=== PATIENT | male | born 1955 | race Caucasian/White ===

== ENCOUNTER 2016-10-06 07:59 | Emergency (ER) | payer OTHER ==
[~2016-10-06 07:59] MED LIST: ASPI325T4 PO; ATV/2 PO; BSP/10 PO; CARB200T PO; ESCI10TA17 PO; FLM4 PO; HMLI SC; INSU1INJ7 SC; MULT-506 PO; NRN600 PO; SIMV40TA2 PO; TEST1INJ2 IM; ZNTT/150 PO
[2016-10-06 08:02] VITALS: TEMP 37; Ht 185.4 cm
[2016-10-06] MEDS ORDERED: SODIUM CHLORIDE 0.9% 1000ML 1,000 ML IV STA (08:14)
[2016-10-06] MEDS ORDERED: ACETAMINOPHEN 500 MG TAB PO STA (08:14)
[2016-10-06] MEDS ORDERED: SUCRALFATE 1 GM TAB PO STA (08:16)
[2016-10-06] MEDS ORDERED: GI COCKTAIL PO STA (08:16)
[2016-10-06] MEDS ORDERED: FAMOTIDINE 20 MG TAB PO STA (08:16)
--- NOTE | 2016-10-06 08:16 | EMERGENCY ROOM VISIT NOTE ---
History Report prepared by Dorita: Yohana Layton Under the Supervision of: Dr. Hari De Anda M.D. First contact with patient: 08:05 Chief Complaint: CHEST PAIN Stated Complaint: CHEST PAIN, SOB, DIZZY History of Present Illness The patient is a 60 year old male who presents to the Emergency Room with complaints of persistent nausea each morning for the last several months. The patient states that each morning when he wakes he has woken up with nausea. The patient states that he develops pain in his upper shoulders. He states that he has had difficulty ambulating. The patient states that he has developed a headache today on top of his head. The patient's notes that the patient has complained of chest pain and dizziness recently. The patient states that his chest pain comes with exertion. He denies taking anything for his discomfort or recent changes in his medications. Source of History: patient Onset: last several months Position: other (global) Quality: other (nausea) Timing: other (persistent, each morning) Associated Symptoms: + chest pain, + headache Note: Associated Symptoms: difficulty ambulating, pain in shoulders, dizziness Review of Systems See HPI for pertinent positives & negatives. A total of 10 systems reviewed and were otherwise negative. Past Medical & Surgical Medical Problems: (1) Anxiety (2) Chest pain (3) Diabetes mellitus (4) Infected sebaceous cyst (5) Laser prostate surgery (6) Nasal surgery (7) Pneumonia (8) TIA (transient ischemic attack) (9) Tonsillectomy Family History FH: migraines Social History Smoking Status: Never Smoker Alcohol Use: none Drug Use: none Marital Status: Housing Status: lives with family Occupation Status: disabled Current/Historical Medications Scheduled Aspirin (Aspirin), 0.5 TAB PO QPM Buspirone HCl (Buspirone HCl), 20 MG PO BID Carbamazepine (Tegretol), 200 MG PO BID Escitalopram (Lexapro), 30 MG PO QPM Gabapentin (Gabapentin), 600 MG PO BID Insulin Glargine (Lantus Solostar), 50 SC BID Insulin Lispro (Human) (Humalog Kwikpen), 24 UNITS SC TIDM Ranitidine (Zantac), 150 MG PO BID Simvastatin (Zocor), 40 MG PO QPM Tamsulosin HCl (Tamsulosin HCl), 0.4 MG PO QPM Testosterone Cypionate (Testosterone Cypionate), 0.75 ML IM EVERY WEDNESDAY Scheduled PRN Lidocaine Hcl (Mouth-Throat) (Lidocaine Hcl), Unknown Dose PO DAILY PRN for Pain Lorazepam (Ativan), 2 MG PO DAILY PRN for Anxiety Allergies Coded Allergies: Metformin (Unverified Allergy, Intermediate, ., 10/06/16) Morphine (Verified Allergy, Intermediate, SHAKES, 10/06/16) Propoxyphene (Verified Adverse Reaction, Intermediate, SHAKES (DARVOCET), 10/06/16) Physical Exam Vital Signs Date Time Temp Pulse Resp B/P Pulse Ox O2 Delivery O2 Flow Rate FiO2 10/06/16 11:43 69 16 112/75 96 10/06/16 10:31 63 18 94/56 96 Room Air 10/06/16 09:25 70 18 107/57 96 Room Air 10/06/16 09:25 95 Room Air 10/06/16 09:25 96 Room Air 10/06/16 08:59 68 10/06/16 08:40 72 20 114/73 10/06/16 08:02 37.0 80 20 162/140 97 Room Air Physical Exam GENERAL: Patient is a healthy-appearing well-nourished HEAD: Normocephalic atraumatic EYES: Ocular movements intact pupils equal and react to light OROPHARYNX mucous membranes are moist no exudates present no erythema or edema present NECK: Supple no nuchal rigidity CHEST: Good equal expansion LUNGS: Clear and equal to auscultation CARDIAC: Normal S1 and S2 ABDOMEN: Soft nontender no guarding BACK: No CVA tenderness EXTREMITIES: No pain upon palpation normal muscle strength in all groups no clubbing cyanosis or edema NEURO: Patient is following commands is answering questions appropriately. Alert and oriented x3 Cranial Nerves 2-12 grossly intact Medical Decision & Procedures ER Provider Diagnostic Interpretation: X-ray results as stated below per interpretation by me and the radiologist: CHEST ONE VIEW PORTABLE CLINICAL HISTORY: Atypical chest pain COMPARISON STUDY: 03/02/2016 FINDINGS: The study is mildly rotated. The cardiac and mediastinal contours remain stable. There is no failure. There is no focal pulmonary consolidation. No pleural effusions are visualized.[ IMPRESSION: No change the prior study. No acute findings. Electronically signed by: Philip Aguirre M.D. 10/06/2016 8:47 AM Dictated Date/Time: 10/06/2016 8:47 AM Laboratory Results 10/06/16 09:50 Red Blood Count 4.56, Mean Corpuscular Volume 95.4, Mean Corpuscular Hemoglobin 32.2, Mean Corpuscular Hemoglobin Concent 33.8, Mean Platelet Volume 9.5, Neutrophils (%) (Auto) 55.1, Lymphocytes (%) (Auto) 31.7, Monocytes (%) (Auto) 10.7, Eosinophils (%) (Auto) 1.9, Basophils (%) (Auto) 0.6, Neutrophils # (Auto ) 2.87, Lymphocytes # (Auto) 1.65, Monocytes # (Auto) 0.56, Eosinophils # (Auto ) 0.10, Basophils # (Auto) 0.03 10/06/16 08:10 Test 10/06/16 08:10 10/06/16 08:19 10/06/16 08:23 10/06/16 09:50 Estimated GFR () 94.4 Estimated GFR (Non- 81.4 BUN/Creatinine Ratio 14.8 (10-20) Calcium Level 9.2 mg/dl (8.5-10.1) Total Bilirubin 0.5 mg/dl (0.2-1) Direct Bilirubin 0.1 mg/dl (0-0.2) Aspartate Amino Transf (AST/SGOT) 14 U/L (15-37) Alanine Aminotransferase (ALT/SGPT) 31 U/L (12-78) Alkaline Phosphatase 112 U/L (45-117) Total Creatine Kinase 69 U/L (39-308) Creatine Kinase MB 0.6 ng/ml (0.5-3.6) Creatine Kinase MB Ratio 0.9 (0-3.0) Total Protein 8.4 gm/dl (6.4-8.2) Albumin 3.7 gm/dl (3.4-5.0) Lipase 169 U/L (73-393) Bedside D-Dimer 422 ng/mlFEU (0-450) Bedside Hemoglobin 15.3 g/dl (14.0-18.0) Bedside Hematocrit 45 % (42-52) Bedside Sodium 137 mEq/L (135-144) Bedside Potassium 4.6 mEq/L (3.3-5.0) Bedside Chloride 98 mEq/L (101-112) Bedside Total CO2 29 mEq/l (24-31) Anion Gap 15.0 mmol/L (16-25) Bedside Blood Urea Nitrogen 17 mg/dl (7-18) Bedside Creatinine 0.7 mg/dl (0.6-1.3) Bedside Glucose (other) 244 mg/dl (70-99) Bedside Ionized Calcium (Mehrdad) 1.19 mmol/l (1.12-1.32) White Blood Count 5.21 K/uL (4.8-10.8) Red Blood Count 4.56 M/uL (4.7-6.1) Hemoglobin 14.7 g/dL (14.0-18.0) Hematocrit 43.5 % (42-52) Mean Corpuscular Volume 95.4 fL (80-100) Mean Corpuscular Hemoglobin 32.2 pg (25-34) Mean Corpuscular Hemoglobin Concent 33.8 g/dl (32-36) Platelet Count 232 K/uL (130-400) Mean Platelet Volume 9.5 fL (7.4-10.4) Neutrophils (%) (Auto) 55.1 % Lymphocytes (%) (Auto) 31.7 % Monocytes (%) (Auto) 10.7 % Eosinophils (%) (Auto) 1.9 % Basophils (%) (Auto) 0.6 % Neutrophils # (Auto) 2.87 K/uL (1.4-6.5) Lymphocytes # (Auto) 1.65 K/uL (1.2-3.4) Monocytes # (Auto) 0.56 K/uL (0.11-0.59) Eosinophils # (Auto) 0.10 K/uL (0-0.5) Basophils # (Auto) 0.03 K/uL (0-0.2) RDW Standard Deviation 45.9 fL (36.4-46.3) RDW Coefficient of Variation 13.2 % (11.5-14.5) Immature Granulocyte % (Auto) 0.0 % Immature Granulocyte # (Auto) 0.00 K/uL (0.00-0.02) Troponin I < 0.015 ng/ml (0-0.045) Labs reviewed by ED physician. Medications Administered Medications (Trade) Dose Ordered Sig/Kathy Route Start Time Stop Time Status Last Admin Dose Admin Sodium Chloride (Nss 1000ml) 1,000 ml @ 999 mls/hr Q1H1M STAT IV 10/06/16 08:14 10/06/16 09:14 DC 10/06/16 08:36 999 MLS/HR Acetaminophen (Tylenol Tab) 1,000 mg NOW STAT PO 10/06/16 08:14 10/06/16 08:16 DC 10/06/16 08:35 1,000 MG Miscellaneous Medication (Gi Cocktail) 24 ml NOW STAT PO 10/06/16 08:16 10/06/16 08:18 DC 10/06/16 08:36 24 ML Famotidine (Pepcid Tab) 20 mg NOW STAT PO 10/06/16 08:16 10/06/16 08:18 DC 10/06/16 08:35 20 MG Sucralfate (Carafate Tab) 1 gm NOW STAT PO 10/06/16 08:16 10/06/16 08:18 DC 10/06/16 08:35 1 GM Al Hydroxide/Mg Hydroxide (Maalox Susp) 30 ml STK-MED ONCE .ROUTE 10/06/16 08:36 10/06/16 08:37 DC 10/06/16 08:34 30 ML Lidocaine HCl (Viscous Lidocaine 2% Soln) 20 ml STK-MED ONCE .ROUTE 10/06/16 08:37 10/06/16 08:38 DC 10/06/16 08:34 20 ML Hydromorphone HCl (Dilaudid Inj) 1 mg NOW STAT IV 10/06/16 10:35 10/06/16 10:36 DC 10/06/16 10:52 1 MG Metoclopramide HCl (Reglan Inj) 10 mg NOW STAT IV 10/06/16 10:35 10/06/16 10:36 DC 10/06/16 10:52 10 MG ECG Indication: chest pain Rate (beats per minute): 72 Rhythm: normal sinus Findings: no acute ischemic change, no ectopy Change: Repeat EKG: Normal Sinus rhythm, no ectopy, no ischemic change, 62 beats per minute. ED Course 0807: Past medical records reviewed. The patient was evaluated in room A11B. A complete history and physical examination was performed. 0814: Ordered Tylenol Tab 1000 mg PO, Sodium Chloride 1000 ml @ 999 mls/hr IV. 0816: Ordered Sucralfate 1 gm PO, Pepcid Tab 20 mg PO, GI Cocktail 24 ml PO. 1035: Ordered Reglan Inj 10 mg IV, Dilaudid Inj 1 mg IV. 1112: I reevaluated the patient and he is resting comfortably. I discussed the exam findings with him and I discussed the treatment plan. He additionally notes that he stopped taking his testosterone. He verbalized complete understanding and agreement. He is ready to go home. Medical Decision Differential diagnosis: Etiologies such as cardiac ischemia, aortic dissection, pulmonary embolism, pneumonia, pneumothorax, musculoskeletal, infections, pericarditis, myocarditis , esophageal rupture, gastrointestinal, as well as others were entertained. This is a 60-year-old male who presents emergency department complaining of multiple complaints. The patient is complaining of increased weakness over the past 3 weeks, chest pain, dizziness, headache. He presents today for evaluation of chest pain which is been ongoing for the past month. The patient has a normal EKG which was repeated. He has a normal CK-MB troponin as well as a repeat troponin. Patient was requesting medication for headache however I was uncomfortable with giving him Dilaudid which is what he was requesting while he was being worked up for chest pain. He was given Tylenol at that time. After he was medically cleared using EKG and repeat troponin he was then given Dilaudid for his headache. I feel based on the evaluation that the patient is safe enough to be discharged home for follow-up with cardiology. In addition the patient reports he stopped taking his testosterone and I believe that may be the reason he has been feeling weaker. I stressed the need to return if chest pain worsens. Patient was in agreement with the treatment plan. Impression Primary Impression: Precordial chest pain Scribe Attestation The scribe's documentation has been prepared under my direction and personally reviewed by me in its entirety. I confirm that the note above accurately reflects all work, treatment, procedures, and medical decision making performed by me. Departure Information Dispostion Home / Self-Care Referrals Una Galindo (PCP) Forms HOME CARE DOCUMENTATION FORM, IMPORTANT VISIT INFORMATION, School Instructions, Work Instructions Patient Instructions Chest Pain - [facility], My [facility] Additional Instructions Need follow up with Dr Valenzuela's office this week You received narcotic or benzodiazepene medication while in the emergency room today. Do not drive, operate heavy machinery, or drink alcohol under the influence of this medication. You have been examined and treated today on an emergency basis only. This is not a substitute for, or an effort to provide, complete comprehensive medical care. It is impossible to recognize and treat all injuries or illnesses in a single emergency department visit. It is therefore important that you follow up closely with [facility]. Call as soon as possible for an appointment. Thank you for your time and consideration. I look forward to speaking with you again soon. Please don't hesitate to call us if you have any questions.
[2016-10-06] MEDS ORDERED: ALUMINUM/MAGNESIUM SUSP 30 ML UDC ONE (08:36)
[2016-10-06] MEDS ORDERED: LIDOCAINE HCL 2% VISC SOLN 20 ML UDC ONE (08:37)
[2016-10-06 08:38] LABS: ISTAT CREATININE 0.7 mg/dl (0.6-1.3); ISTAT HEMOGLOBIN 15.3 g/dl (14.0-18.0); ISTAT IONIZED CALCIUM 1.19 mmol/l (1.12-1.32)
[2016-10-06] MEDS ORDERED: INSU100I2 SC (08:39)
[2016-10-06] MEDS ORDERED: INSDGIPEN SC (08:39)
[2016-10-06] MEDS ORDERED: LIDO2SOL10 PO (08:44)
--- NOTE | 2016-10-06 08:49 | DIAGNOSTIC IMAGING REPORT ---
CHEST ONE VIEW PORTABLE CLINICAL HISTORY: Atypical chest pain COMPARISON STUDY: 03/02/2016 FINDINGS: The study is mildly rotated. The cardiac and mediastinal contours remain stable. There is no failure. There is no focal pulmonary consolidation. No pleural effusions are visualized.[ IMPRESSION: No change the prior study. No acute findings. Electronically signed by: Philip Aguirre M.D. 10/06/2016 8:47 AM Dictated Date/Time: 10/06/2016 8:47 AM
[2016-10-06 09:04] LABS: BLOOD UREA NITROGEN 15 mg/dl (7-18); BUN/CREATININE RATIO 14.8 (10-20); CALCIUM 9.2 mg/dl (8.5-10.1); CARBON DIOXIDE 30 mmol/L (21-32); CHLORIDE 101 mmol/L (98-107); GLUCOSE 246 mg/dl (70-99); POTASSIUM 4.5 mmol/L (3.5-5.1); SODIUM 135 mmol/L (136-145)
[2016-10-06 09:11] LABS: ALKALINE PHOSPHATASE 112 U/L (45-117); ALT/SGPT 31 U/L (12-78); AST/SGOT 14 U/L (15-37); CKMB/CK RATIO 0.9 (0-3.0)
[2016-10-06 09:25] VITALS: O2SAT 96
[2016-10-06 10:04] LABS: BASO % 0.6 %; BASO ABS # 0.03 K/uL (0-0.2); COMPLETE YES; EOS % 1.9 %; HEMATOCRIT 43.5 % (42-52); LYMPH % 31.7 %; LYMPH ABS # 1.65 K/uL (1.2-3.4); MEAN CELL VOLUME 95.4 fL (80-100); MEAN CORPUSCULAR HEMOGLOBIN 32.2 pg (25-34); MEAN CORPUSCULAR HGB CONC 33.8 g/dl (32-36); MEAN PLATELET VOLUME 9.5 fL (7.4-10.4); MONO % 10.7 %; NEUT % 55.1 %; PLATELET COUNT 232 K/uL (130-400); RED BLOOD COUNT 4.56 M/uL (4.7-6.1); WHITE BLOOD COUNT 5.21 K/uL (4.8-10.8)
[2016-10-06] MEDS ORDERED: HYDROmorphone INJ 1 MG/ML SYR IV STA (10:35)
[2016-10-06] MEDS ORDERED: METOCLOPRAMIDE HCL INJ 5 MG/ML 2 ML VIAL IV STA (10:35)
[2016-10-06 11:43] VITALS: BP 112/75; PULSE 69; O2SAT 96
[2017-03-09] MEDS ORDERED: MULT-1027 PO (12:44)
[2017-03-09] MEDS ORDERED: LIRA18IN SQ (12:44)
[2017-03-09] MEDS ORDERED: LIDO4PAD3 EX (12:44)
[2017-03-09] MEDS ORDERED: DTR/5 PO (12:44)
[2017-03-09] MEDS ORDERED: LIDO2GEL9 EX (12:44)
[2017-03-09] MEDS ORDERED: CLR10 PO (12:44)
[2017-03-09] MEDS ORDERED: ASPI-435 PO (12:44)
[2017-03-23] MEDS ORDERED: CIPR-255 PO (08:02)
[2017-03-23] MEDS ORDERED: ACET-749 PO (08:02)
== END 2016-10-06 11:45 | disposition home or self-care (01) ==
LOC: C.EDB 08:01 → C.EDA 11:45
DX: R07.2 Precordial pain (principal); F41.9 Anxiety disorder, unspecified; E11.9 Type 2 diabetes mellitus without complications; Z86.73 Personal history of transient ischemic attack (TIA), and cerebral infarction without residual deficits; Z79.82 Long term (current) use of aspirin; Z79.4 Long term (current) use of insulin; R42 Dizziness and giddiness

== ENCOUNTER → 2016-10-12 | Outpatient (CLI) | payer OTHER ==
[~2016-10-12] MED LIST changes: +ACET-749 PO; +ASPI-435 PO; +ATOR-26 PO; +CIPR-255 PO; +CLR10 PO; +DTR/5 PO; -HMLI SC; +INSDGIPEN SC; +INSU100I2 SC; -INSU1INJ7 SC; +LIDO2GEL9 EX; +LIDO2SOL10 PO; +LIDO4PAD3 EX; +LIRA18IN SQ; +MULT-1027 PO; -MULT-506 PO; +PHEN-876 PO
[2016-10-12 15:32] LABS: RATIO 27.6 mcg/mg (0-30.0)
[2016-10-13 06:15] LABS: ESTIMATED AVERAGE GLUCOSE 171 mg/dl; HA1C FLAG Normal (Normal)
== END | disposition home or self-care (01) ==
LOC: C.LAB1850 13:32
PROVIDERS: ATTEND Internal Medicine Endocrinology, Diabetes & Metabolism
DX: E78.5 Hyperlipidemia, unspecified (principal); E55.9 Vitamin D deficiency, unspecified; E29.1 Testicular hypofunction; E11.9 Type 2 diabetes mellitus without complications

== ENCOUNTER 2017-01-28 21:47 | Emergency (ER) | payer OTHER ==
[~2017-01-28] VITALS: Ht 185.4 cm; Wt 190.0 kg
[~2017-01-28 21:47] MED LIST changes: -ACET-749 PO; -ASPI-435 PO; -ATOR-26 PO; -CIPR-255 PO; -CLR10 PO; -LIDO2GEL9 EX; -LIDO4PAD3 EX; -LIRA18IN SQ; -MULT-1027 PO; -OXYB5TAB74 PO; -PHEN-876 PO
[2017-01-28 21:50] VITALS: TEMP 37.4; Ht 185.4 cm; Wt 190.0 kg
--- NOTE | 2017-01-28 22:04 | EMERGENCY ROOM VISIT NOTE ---
History Report prepared by Dorita: Miranda Holcomb Under the Supervision of: Dr. Alexis Chang M.D. First contact with patient: 21:56 Chief Complaint: UNABLE TO VOID Stated Complaint: UNABLE TO URINATE - SENT BY DR DALTON History of Present Illness The patient is a 61 year old male who presents to the Emergency Room with complaints of being unable to void. He saw Dr. Dalton with [facility] earlier today and was given recommendations on how to self-catheterize, and sent home. He was unable to catheterize himself because of his large pannus , so he came to the ED. It has now been 7 hours since he has urinated. He rates his discomfort as a 9/10. The patient also complains of some cold sweats recently. He denies any recent fevers. Source of History: patient Onset: 8 hours HOME COORDINATOR Position: pelvis (urinary system) Symptom Intensity: 9/10 Timing: other (persistent) Modifying Factors (Worsening): other (unable to void) Associated Symptoms: + diaphoresis (cold sweats), No fevers Review of Systems See HPI for pertinent positives & negatives. A total of 10 systems reviewed and were otherwise negative. Past Medical & Surgical Medical Problems: (1) Anxiety (2) Chest pain (3) Diabetes mellitus (4) Infected sebaceous cyst (5) Laser prostate surgery (6) Nasal surgery (7) Pneumonia (8) TIA (transient ischemic attack) (9) Tonsillectomy Family History FH: migraines Social History Smoking Status: Never Smoker Alcohol Use: none Drug Use: none Marital Status: Housing Status: lives with family Occupation Status: disabled Current/Historical Medications Scheduled Aspirin (Aspirin), 0.5 TAB PO QPM Atorvastatin (Lipitor), 80 MG PO DAILY Buspirone HCl (Buspirone HCl), 20 MG PO BID Carbamazepine (Tegretol), 200 MG PO BID Escitalopram (Lexapro), 30 MG PO QPM Gabapentin (Gabapentin), 600 MG PO BID Insulin Glargine (Lantus Solostar), 50 SC BID Insulin Lispro (Human) (Humalog Kwikpen), 24 UNITS SC TIDM Ranitidine (Zantac), 150 MG PO BID Tamsulosin HCl (Tamsulosin HCl), 0.4 MG PO QPM Testosterone Cypionate (Testosterone Cypionate), 0.75 ML IM EVERY WEDNESDAY Scheduled PRN Lorazepam (Ativan), 2 MG PO DAILY PRN for Anxiety Allergies Coded Allergies: Metformin (Unverified Allergy, Intermediate, ., 01/28/17) Morphine (Verified Allergy, Intermediate, SHAKES, 01/28/17) Propoxyphene (Verified Adverse Reaction, Intermediate, SHAKES (DARVOCET), 01/28/17) Physical Exam Vital Signs Date Time Temp Pulse Resp B/P (MAP) Pulse Ox O2 Delivery O2 Flow Rate FiO2 01/29/17 00:05 98 18 152/84 95 01/28/17 21:50 37.4 103 18 163/97 94 Room Air Physical Exam GENERAL: Patient is in no acute distress. HEENT: No acute trauma, normocephalic atraumatic, mucous membranes moist, no nasal congestion, no scleral icterus. NECK: No stridor, no adenopathy, no meningismus, trachea is midline. LUNGS: Clear to auscultation bilaterally, no wheeze, no rhonchi, breath sounds equal. HEART: Without murmurs gallops or rubs, regular rate and rhythm. ABDOMEN: Soft, nontender, bowel sounds positive, no hernias, no peritonitis. EXTREMITIES: No cyanosis, full range of motion of all the joints without pain or difficulty, no signs for acute trauma. NEUROLOGIC: Oriented x 3, no acute motor or sensory deficits, no focal weakness. SKIN: No rash, no jaundice, no diaphoresis. Medical Decision & Procedures Laboratory Results 01/28/17 22:29 01/28/17 22:29 Test 01/28/17 22:29 Red Blood Count 4.78 M/uL (4.7-6.1) Mean Corpuscular Volume 92.9 fL (80-100) Mean Corpuscular Hemoglobin 32.6 pg (25-34) Mean Corpuscular Hemoglobin Concent 35.1 g/dl (32-36) RDW Standard Deviation 46.0 fL (36.4-46.3) RDW Coefficient of Variation 13.4 % (11.5-14.5) Mean Platelet Volume 10.1 fL (7.4-10.4) Urine Color YELLOW Urine Appearance CLEAR (CLEAR) Urine pH 6.0 (4.5-7.5) Urine Specific [place] 1.022 (1.000-1.030) Urine Protein NEG (NEG) Urine Glucose (UA) NEG (NEG) Urine Ketones NEG (NEG) Urine Occult Blood 2+ (NEG) Urine Nitrite NEG (NEG) Urine Bilirubin NEG (NEG) Urine Urobilinogen NEG (NEG) Urine Leukocyte Esterase NEG (NEG) Urine WBC (Auto) 1-5 /hpf (0-5) Urine RBC (Auto) 10-30 /hpf (0-4) Urine Hyaline Casts (Auto) 1-5 /lpf (0-5) Urine Epithelial Cells (Auto) 10-20 /lpf (0-5) Urine Bacteria (Auto) NEG (NEG) Anion Gap 6.0 mmol/L (3-11) Est Creatinine Clear Calc Drug Dose 151.1 ml/min Estimated GFR () 106.5 Estimated GFR (Non- 91.9 BUN/Creatinine Ratio 13.4 (10-20) Calcium Level 8.7 mg/dl (8.5-10.1) Laboratory results reviewed by me. Medications Administered Medications (Trade) Dose Ordered Sig/Kathy Route Start Time Stop Time Status Last Admin Dose Admin Lidocaine HCl (Xylocaine Jelly 2%) 30 ml ClicData-MED ONCE EXT 01/28/17 22:07 01/28/17 22:08 DC 01/28/17 22:07 30 ML ED Course 2156: The patient was evaluated in room A4. A complete history and physical exam was performed. 2206: Lidocaine HCl 30 ml EXT. 2330: I reevaluated the patient. He is feeling much better. I discussed his results and discharge instructions and he verbalized complete understanding and agreement. Medical Decision The differential diagnoses considered include UTI, enlarged prostate, renal failure, anemia and urinary retention. The patient presents with the inability to urinate. He was at urology earlier today and was instructed on how to self cath but has been unable to do this procedure because of his body habitus. He was requesting a Dillon catheter, he has had a Dillon in the past. There is no leukocytosis or concerning anemia. No significant electrolyte abnormality or kidney failure. Urinalysis does not show infection. A Dillon catheter was placed, there were no issues or problems. The patient felt improved. He is being discharged home to follow with urology. Medication Reconcilliation Current Medication List: was personally reviewed by me Blood Pressure Screening Patient's blood pressure: Elevated blood pressure Blood pressure disposition: Elevated BP felt to be situational Impression Primary Impression: Urinary retention Scribe Attestation The scribe's documentation has been prepared under my direction and personally reviewed by me in its entirety. I confirm that the note above accurately reflects all work, treatment, procedures, and medical decision making performed by me. Departure Information Dispostion Home / Self-Care Referrals Una Galindo (PCP) Patient Instructions My [facility] Additional Instructions return for difficulty with urine drainage talk with urology tomorrow urine testing was ok today
[2017-01-28] MEDS ORDERED: LIDOCAINE HCL 2% JELLY 30 ML TUBE EXT ONE (22:07)
[2017-01-28 22:45] LABS: HEMATOCRIT 44.4 % (42-52); MEAN CELL VOLUME 92.9 fL (80-100); MEAN CORPUSCULAR HEMOGLOBIN 32.6 pg (25-34); MEAN CORPUSCULAR HGB CONC 35.1 g/dl (32-36); MEAN PLATELET VOLUME 10.1 fL (7.4-10.4); PLATELET COUNT 248 K/uL (130-400); RED BLOOD COUNT 4.78 M/uL (4.7-6.1); WHITE BLOOD COUNT 6.97 K/uL (4.8-10.8)
[2017-01-28 22:57] LABS: URINE APPEARANCE CLEAR (CLEAR); URINE BILIRUBIN NEG (NEG); URINE COLOR YELLOW; URINE NITRITE NEG (NEG); URINE SPECIFIC GRAVITY 1.022 (1.000-1.030); UROBILINOGEN NEG (NEG)
[2017-01-28 22:58] LABS: MANUAL MICROSCOPIC REQUIRED? NO; REVIEW REQ? NO
[2017-01-28 23:03] LABS: BUN/CREATININE RATIO 13.4 (10-20); CALCIUM 8.7 mg/dl (8.5-10.1); CREATININE 0.9 mg/dl (0.60-1.40)
[2017-01-28] MEDS ORDERED: ATOR-26 PO (23:12)
[2017-01-29 00:05] VITALS: BP 152/84; PULSE 98; O2SAT 95
[2017-03-09] MEDS ORDERED: OXYB5TAB74 PO (12:44)
[2017-03-09] MEDS ORDERED: CLR10 PO (12:44)
[2017-03-09] MEDS ORDERED: LIDO4PAD3 EX (12:44)
[2017-03-09] MEDS ORDERED: MULT-1027 PO (12:44)
[2017-03-09] MEDS ORDERED: ASPI-435 PO (12:44)
[2017-03-09] MEDS ORDERED: LIDO2GEL9 EX (12:44)
[2017-03-09] MEDS ORDERED: LIRA18IN SQ (12:44)
[2017-03-23] MEDS ORDERED: CIPR-255 PO (08:02)
[2017-03-23] MEDS ORDERED: ACET-749 PO (08:02)
== END 2017-01-29 00:06 | disposition home or self-care (01) ==
LOC: C.EDB 21:48 → C.EDA 01-29 00:06
DX: R33.9 Retention of urine, unspecified (principal); F41.9 Anxiety disorder, unspecified; E11.9 Type 2 diabetes mellitus without complications; Z86.73 Personal history of transient ischemic attack (TIA), and cerebral infarction without residual deficits; Z98.890 Other specified postprocedural states; R35.0 Frequency of micturition; R35.1 Nocturia; R39.15 Urgency of urination; R39.11 Hesitancy of micturition

== ENCOUNTER → 2017-01-28 | Outpatient (CLI) | payer OTHER ==
[~2017-01-28] MED LIST changes: -DTR/5 PO; +OXYB5TAB74 PO
== END | disposition home or self-care (01) ==
LOC: C.LABSPEC 16:48
PROVIDERS: ATTEND Nurse Practitioner Family
DX: R33.9 Retention of urine, unspecified (principal); R35.0 Frequency of micturition; R35.1 Nocturia; R39.15 Urgency of urination; R39.11 Hesitancy of micturition

== ENCOUNTER 2017-02-12 23:38 | Emergency (ER) | payer OTHER ==
[~2017-02-12] VITALS: Ht 185.4 cm; Wt 172.8 kg
[~2017-02-12 23:38] MED LIST changes: +ATOR-26 PO; -LIDO2SOL10 PO; -SIMV40TA2 PO
[2017-02-12 23:44] VITALS: TEMP 36.6; Ht 185.4 cm; Wt 172.8 kg
[2017-02-12] MEDS ORDERED: LIDOCAINE HCL 2% JELLY 30 ML TUBE EXT STA (23:52)
[2017-02-13 01:01] LABS: URINE APPEARANCE CLEAR (CLEAR); URINE BILIRUBIN NEG (NEG); URINE COLOR DK YELLOW; URINE EPITHELIAL CELL AUTO 0-5 /lpf (0-5); URINE NITRITE POS (NEG); URINE PH 6.5 (4.5-7.5); URINE SPECIFIC GRAVITY 1.019 (1.000-1.030); UROBILINOGEN NEG (NEG); ZZURINE CULT IF INDIC CATH NO
[2017-02-13 01:04] LABS: MANUAL MICROSCOPIC REQUIRED? NO; REVIEW REQ? NO
--- NOTE | 2017-02-13 01:12 | EMERGENCY ROOM VISIT NOTE ---
History First contact with patient: 23:46 Chief Complaint: URINARY SYMPTOMS Stated Complaint: UNABLE TO URINATE-NEED A CATHETER History of Present Illness The patient is a 61 year old male who presents to the Emergency Room with complaints of urinary retention since 1 PM today. Patient saw Dr. Manrique today. He states his prostate was fine. Patient states he needs a Dillon catheter. This is a recurrent issue for him. Patient denies chest pain, back pain, fevers, vomiting. Patient is requesting a male nurse to do the procedure. Patient also requesting a prescription for Pyridium. This is given to him. Review of Systems See HPI for pertinent positives & negatives. A total of 10 systems reviewed and were otherwise negative. Past Medical/Surgical History Medical Problems: (1) Anxiety (2) Chest pain (3) Diabetes mellitus (4) Infected sebaceous cyst (5) Laser prostate surgery (6) Nasal surgery (7) Pneumonia (8) TIA (transient ischemic attack) (9) Tonsillectomy Family History FH: migraines Social History Smoking Status: Never Smoker Alcohol Use: none Drug Use: none Marital Status: Housing Status: lives with family Occupation Status: disabled Current/Historical Medications Scheduled Aspirin (Aspirin), 0.5 TAB PO QPM Atorvastatin (Lipitor), 80 MG PO DAILY Buspirone HCl (Buspirone HCl), 20 MG PO BID Carbamazepine (Tegretol), 200 MG PO BID Escitalopram (Lexapro), 30 MG PO QPM Gabapentin (Gabapentin), 600 MG PO BID Insulin Glargine (Lantus Solostar), 50 SC BID Insulin Lispro (Human) (Humalog Kwikpen), 24 UNITS SC TIDM Ranitidine (Zantac), 150 MG PO BID Tamsulosin HCl (Tamsulosin HCl), 0.4 MG PO QPM Testosterone Cypionate (Testosterone Cypionate), 0.75 ML IM EVERY WEDNESDAY Scheduled PRN Lorazepam (Ativan), 2 MG PO DAILY PRN for Anxiety Physical Exam Vital Signs Date Time Temp Pulse Resp B/P (MAP) Pulse Ox O2 Delivery O2 Flow Rate FiO2 02/12/17 23:44 36.6 114 20 156/89 96 Room Air Physical Exam VITALS: Vitals are noted on the nurse's note and reviewed by myself. Vital signs hypertensive GENERAL: Male, in no acute distress, nondiaphoretic, well-developed well- nourished. SKIN: Capillary reflex less than 2 seconds. HEENT: Normocephalic. PERRLA. EOMI. Nares patent. Mucous membranes moist. Neck is supple without nuchal rigidity. HEART: Regular rate and rhythm LUNGS: Clear to auscultation bilaterally without wheezes, rales or rhonchi. No retractions or accessory muscle use. ABDOMEN: Positive bowel sounds x 4. Normal tympanic percussion. Soft, protuberant, obese, nontender, without masses or organomegaly. Zavaleta sign negative. No guarding or rebound tenderness. No CVA tenderness MUSCULOSKELETAL: No gross musculoskeletal defects. NEURO: Patient was alert and oriented to person place and time. Normal sensation to light and sharp touch. No focal neurological deficits. Medical Decision & Procedures Laboratory Results Test 02/13/17 00:30 Urine Color DK YELLOW Urine Appearance CLEAR (CLEAR) Urine pH 6.5 (4.5-7.5) Urine Specific [place] 1.019 (1.000-1.030) Urine Protein NEG (NEG) Urine Glucose (UA) NEG (NEG) Urine Ketones NEG (NEG) Urine Occult Blood NEG (NEG) Urine Nitrite POS (NEG) Urine Bilirubin NEG (NEG) Urine Urobilinogen NEG (NEG) Urine Leukocyte Esterase NEG (NEG) Urine WBC (Auto) 1-5 /hpf (0-5) Urine RBC (Auto) 0-4 /hpf (0-4) Urine Hyaline Casts (Auto) 0 /lpf (0-5) Urine Epithelial Cells (Auto) 0-5 /lpf (0-5) Urine Bacteria (Auto) NEG (NEG) Medications Administered Medications (Trade) Dose Ordered Sig/Kathy Route Start Time Stop Time Status Last Admin Dose Admin Lidocaine HCl (Xylocaine Jelly 2%) 30 ml NOW STAT EXT 02/12/17 23:52 02/12/17 23:56 DC 02/13/17 00:11 15 ML ED Course Prior records reviewed and summarized as above. Triage Nursing notes reviewed. The patient's history was concerning for unable to urinate Differential diagnosis: Etiologies such as urinary retention, urinary traction, UTI, renal colic, as well as others were entertained.. Physical examination: As above ER treatment provided: Bladder scan and Dillon catheter On reassessment the patient felt better. Diagnostics interpreted by me: The labs revealed no signs of UTI and urine culture was sent. This appears to be urinary retention. This is a recurrent issue for this patient. He follows at Dr. Manrique. He was advised to follow-up with urology in a few days or here in the ER sooner for problems of full catheter, fevers, back pain, vomiting, abdominal pain, worsening signs or symptoms or as needed. Patient had Dillon catheters before and states he knows how to care for them. Patient requested a male nurse and his nurse with a male. By the evaluation outlined above emergent etiologies such as UTI, obstruction as well as others were deemed relatively unlikely. The pt informed about the findings as listed above. All questions were answered and pleased with the treatment. Return instructions were outlined and the patient was discharged in stable condition. Referral: The patient was referred back to urology for follow-up in 2 to 3 days for a recheck of the current condition. Medical Decision as above Impression Primary Impression: Urinary retention Departure Information Dispostion Home / Self-Care Condition GOOD Referrals Una Galindo (PCP) Patient Instructions My [facility] Additional Instructions Frequently empty out the Dillon catheter. Continue current medications. Stay well-hydrated. Follow-up with urology in 2-3 days, call for an appointment. Return to ER sooner for problems with Dillon catheter, fevers, back pain, abdominal pain, worsening signs or symptoms or as needed.
[2017-02-13 01:14] VITALS: BP 138/70; PULSE 68; O2SAT 95
[2017-02-13] MEDS ORDERED: PHEN-876 PO (01:16)
--- NOTE | 2017-02-13 01:16 | EMERGENCY ROOM VISIT NOTE ---
ED Visit Note First contact with patient: 23:46 I saw this patient in conjunction with Tamara Bahena PA-C. I agree with her decision making and treatment plan.
--- NOTE | 2017-02-17 14:16 | Pharmacy Progress Note ---
ED Pharmacist Culture FollowUp Date of Service: Feb 17, 2017. Called patient regarding urine culture with E. faecalis. Informed of positive culture result. Spoke with patient for ~20 minutes and answered all questions. Patient reported following with Dr. Manrique with urology, most recent appointment 02/12. Patient would prefer management to be completed by urology to help facilitate adequate information sharing / follow-up, especially as he has surgery planned with them. Called Dr. Manrique's office and left message on nursing line to call back. Faxed culture result to urology RN station, number provided by [facility] partition making machine operator, fax: . Electronic confirmation that fax went trough was received. Also requested call back from [facility] urology when received.
[2017-03-09] MEDS ORDERED: CLR10 PO (12:44)
[2017-03-09] MEDS ORDERED: LIDO4PAD3 EX (12:44)
[2017-03-09] MEDS ORDERED: ASPI-435 PO (12:44)
[2017-03-09] MEDS ORDERED: OXYB5TAB74 PO (12:44)
[2017-03-09] MEDS ORDERED: MULT-1027 PO (12:44)
[2017-03-09] MEDS ORDERED: LIRA18IN SQ (12:44)
[2017-03-09] MEDS ORDERED: LIDO2GEL9 EX (12:44)
[2017-03-23] MEDS ORDERED: ACET-749 PO (08:02)
[2017-03-23] MEDS ORDERED: CIPR-255 PO (08:02)
== END 2017-02-13 01:37 | disposition home or self-care (01) ==
LOC: C.EDB 23:40 → C.EDC 02-13 01:37
DX: R33.9 Retention of urine, unspecified (principal); E11.9 Type 2 diabetes mellitus without complications; F41.9 Anxiety disorder, unspecified; Z87.01 Personal history of pneumonia (recurrent); Z86.73 Personal history of transient ischemic attack (TIA), and cerebral infarction without residual deficits; Z90.89 Acquired absence of other organs; Z82.0 Family history of epilepsy and other diseases of the nervous system; Z79.4 Long term (current) use of insulin; Z79.82 Long term (current) use of aspirin; Z79.899 Other long term (current) drug therapy

== ENCOUNTER → 2017-03-11 | Outpatient (CLI) | payer OTHER ==
[~2017-03-11] MED LIST changes: +ACET-749 PO; +ASPI-435 PO; -ASPI325T4 PO; +CIPR-255 PO; +CLR10 PO; +LIDO2GEL9 EX; +LIDO4PAD3 EX; +LIRA18IN SQ; +MULT-1027 PO; +OXYB5TAB74 PO; +PHEN-876 PO
== END | disposition home or self-care (01) ==
LOC: C.LABSPEC 17:00
PROVIDERS: ATTEND Urology
DX: N40.1 Benign prostatic hyperplasia with lower urinary tract symptoms (principal)

== ENCOUNTER 2017-03-17 22:38 | Emergency (ER) | payer OTHER ==
[~2017-03-17] VITALS: Ht 188 cm; Wt 171.2 kg
[~2017-03-17 22:38] MED LIST changes: -ACET-749 PO; -CIPR-255 PO
[2017-03-17 22:43] VITALS: BP 147/75; PULSE 103; TEMP 37.2; O2SAT 98; Ht 188 cm; Wt 171.2 kg
[2017-03-17] MEDS ORDERED: LIDOCAINE HCL 2% JELLY 30 ML TUBE EXT STA (23:02)
--- NOTE | 2017-03-17 23:08 | EMERGENCY ROOM VISIT NOTE ---
History First contact with patient: 22:49 Chief Complaint: CATHETER REPLACEMENT Stated Complaint: PULLED CATHETER OUT ON ACCIDENT History of Present Illness The patient is a 61 year old male who presents to the Emergency Room with complaints of accidentally pulling out his yousif catheter. Has had a yousif in for 1 month due to prostate issues. Most recent catheter placed [address] Manrique. States currently taking cipro BID. Denies abdominal pain, fever, n/v, back pain, hematuria. STates catheter was draining well. Review of Systems See HPI for pertinent positives & negatives. A total of 6 systems reviewed and were otherwise negative. Past Medical/Surgical History Medical Problems: (1) Anxiety (2) Chest pain (3) Diabetes mellitus (4) Infected sebaceous cyst (5) Laser prostate surgery (6) Nasal surgery (7) New onset left bundle branch block (LBBB) (8) Pneumonia (9) TIA (transient ischemic attack) (10) Tonsillectomy Family History FH: migraines Social History Smoking Status: Never Smoker Alcohol Use: none Drug Use: none Marital Status: Housing Status: lives with family Occupation Status: disabled Current/Historical Medications Scheduled Aspirin (Aspirin 81), 1 TAB PO QAM Atorvastatin (Lipitor), 80 MG PO HS Buspirone HCl (Buspirone HCl), 20 MG PO BID Carbamazepine (Tegretol), 200 MG PO BID Escitalopram (Lexapro), 30 MG PO QPM Gabapentin (Gabapentin), 600 MG PO BID Insulin Glargine (Lantus Solostar), 50 SC BID Insulin Lispro (Human) (Humalog Kwikpen), 24 UNITS SC TIDM Lidocaine (Aspercreme Lidocaine Max), 1 APPLN EX DIRECTED Lidocaine Hcl (Lidocaine Hcl Jelly), 1 APPLN EX DIRECTED Liraglutide (Victoza), 0.6 MG SQ QPM Loratadine (Claritin), 10 MG PO QAM Multiple Vitamin (Multi Vitamin), 1 TAB PO QPM Oxybutynin Chloride (Ditropan), 1 TAB PO BID Phenazopyridine HCl (Pyridium), 200 MG PO TID Ranitidine (Zantac), 150 MG PO BID Tamsulosin HCl (Tamsulosin HCl), 0.4 MG PO QPM Testosterone Cypionate (Testosterone Cypionate), 0.75 ML IM EVERY WEDNESDAY Scheduled PRN Lorazepam (Ativan), 2 MG PO DAILY PRN for Anxiety Physical Exam Vital Signs Date Time Temp Pulse Resp B/P (MAP) Pulse Ox O2 Delivery O2 Flow Rate FiO2 03/17/17 22:43 37.2 103 20 147/75 98 Room Air Physical Exam GENERAL: Patient is a healthy-appearing well-nourished, obese HEAD: Normocephalic atraumatic NECK: Supple no nuchal rigidity CHEST: Good equal expansion LUNGS: Clear and equal to auscultation CARDIAC: Normal S1 and S2 ABDOMEN: Soft nontender no guarding BACK: No CVA tenderness EXTREMITIES: No pain upon palpation normal muscle strength in all groups no clubbing cyanosis or edema NEURO: Patient is following commands is answering questions appropriately. Alert and oriented x3 Cranial Nerves 2-12 grossly intact Medical Decision & Procedures Medications Administered Medications (Trade) Dose Ordered Sig/Kathy Route Start Time Stop Time Status Last Admin Dose Admin Lidocaine HCl (Xylocaine Jelly 2%) 1 ml NOW STAT EXT 03/17/17 23:02 03/17/17 23:05 DC 03/17/17 23:27 1 ML Medical Decision Pt well appearing here. Accidental dislodgement of catheter, replaced here. Sees urology. No evidence of other trauma or additional infection. Pt taking cipro daily due to indwelling catheter. Medication Reconcilliation Current Medication List: was personally reviewed by me Blood Pressure Screening Patient's blood pressure: Elevated blood pressure Blood pressure disposition: Elevated BP felt to be situational Impression Primary Impression: Dislodged Yousif catheter Departure Information Dispostion Home / Self-Care Condition GOOD Referrals Una Galindo (PCP) Patient Instructions My [facility] Additional Instructions Please continue your plans as scheduled with Dr. Manrique. Please continue your antibiotics as prescribed. Please continue to monitor the catheter for any changes. If the monitor does not seem to be draining appropriately, you notice blood, develop abdominal pain, back pain, fevers or chills, nausea or vomiting, or you've any other new concerns, please return the emergency room. Problem Qualifiers Primary Impression: Dislodged Yousif catheter Encounter type: initial encounter Qualified Codes: T83.021A - Displacement of indwelling urethral catheter, initial encounter
[2017-03-23] MEDS ORDERED: CIPR-255 PO (08:02)
[2017-03-23] MEDS ORDERED: ACET-749 PO (08:02)
== END 2017-03-18 00:14 | disposition home or self-care (01) ==
LOC: C.EDB 22:39 → C.EDA 03-18 00:14
DX: T83.021A Displacement of indwelling urethral catheter, initial encounter (principal); Y84.6 Urinary catheterization as the cause of abnormal reaction of the patient, or of later complication, without mention of misadventure at the time of the procedure; F41.9 Anxiety disorder, unspecified; E11.9 Type 2 diabetes mellitus without complications; Z86.73 Personal history of transient ischemic attack (TIA), and cerebral infarction without residual deficits; Z87.01 Personal history of pneumonia (recurrent); Z79.82 Long term (current) use of aspirin; Z79.4 Long term (current) use of insulin; Z79.899 Other long term (current) drug therapy

== ENCOUNTER 2017-03-23 05:25 | Day surgery (SDC) | payer OTHER ==
[2017-03-09 12:20] VITALS: BMI 50.0
--- NOTE | 2017-03-09 13:00 | PAT Medication Instructions ---
Service Date Mar 09, 2017. Current Home Medication List Aspirin (Aspirin 81), 1 TAB PO QAM Atorvastatin (Lipitor), 80 MG PO HS Buspirone HCl (Buspirone HCl), 20 MG PO BID Carbamazepine (Tegretol), 200 MG PO BID Escitalopram (Lexapro), 30 MG PO QPM Gabapentin (Gabapentin), 600 MG PO BID Insulin Glargine (Lantus Solostar), 50 SC BID Insulin Lispro (Human) (Humalog Kwikpen), 24 UNITS SC TIDM Lidocaine (Aspercreme Lidocaine Max), 1 APPLN EX DIRECTED Lidocaine Hcl (Lidocaine Hcl Jelly), 1 APPLN EX DIRECTED Liraglutide (Victoza), 0.6 MG SQ QPM Loratadine (Claritin), 10 MG PO QAM Lorazepam (Ativan), 2 MG PO DAILY PRN for Anxiety Multiple Vitamin (Multi Vitamin), 1 TAB PO QPM Oxybutynin Chloride (Ditropan), 1 TAB PO BID Phenazopyridine HCl (Pyridium), 200 MG PO TID Ranitidine (Zantac), 150 MG PO BID Tamsulosin HCl (Tamsulosin HCl), 0.4 MG PO QPM Testosterone Cypionate (Testosterone Cypionate), 0.75 ML IM EVERY WEDNESDAY Medication Instructions For Your Scheduled Surgery - Hold the following medications 10 days prior to surgery per surgeon's instructions: Aspirin (Aspirin 81), 1 TAB PO QAM - Check with surgeon for instructions: Lidocaine (Aspercreme Lidocaine Max), 1 APPLN EX DIRECTED Lidocaine Hcl (Lidocaine Hcl Jelly), 1 APPLN EX DIRECTED - Hold the following medications the morning of surgery: Loratadine (Claritin), 10 MG PO QAM Insulin Lispro (Human) (Humalog Kwikpen), 24 UNITS SC TIDM - Take the following medications the morning of surgery with a sip of water OTHERWISE NOTHING TO EAT OR DRINK AFTER MIDNIGHT: Buspirone HCl (Buspirone HCl), 20 MG PO BID Carbamazepine (Tegretol), 200 MG PO BID Gabapentin (Gabapentin), 600 MG PO BID Oxybutynin Chloride (Ditropan), 1 TAB PO BID Phenazopyridine HCl (Pyridium), 200 MG PO TID Ranitidine (Zantac), 150 MG PO BID Lorazepam (Ativan), 2 MG PO DAILY PRN for Anxiety -Check your blood sugar the AM of surgery. IF BLOOD SUGAR IS GREATER THAN 150, TAKE HALF OF YOUR REGULAR DOSE OF MORNING LANTUS IF BLOOD SUGAR IS LESS THAN 150, DO NOT TAKE ANY MORNING LANTUS - Take the following medications as scheduled the night before surgery: Liraglutide (Victoza), 0.6 MG SQ QPM Atorvastatin (Lipitor), 80 MG PO HS Insulin Glargine (Lantus Solostar), 50 SC BID Insulin Lispro (Human) (Humalog Kwikpen), 24 UNITS SC TIDM Buspirone HCl (Buspirone HCl), 20 MG PO BID Carbamazepine (Tegretol), 200 MG PO BID Gabapentin (Gabapentin), 600 MG PO BID Multiple Vitamin (Multi Vitamin), 1 TAB PO QPM Escitalopram (Lexapro), 30 MG PO QPM Tamsulosin HCl (Tamsulosin HCl), 0.4 MG PO QPM Oxybutynin Chloride (Ditropan), 1 TAB PO BID Phenazopyridine HCl (Pyridium), 200 MG PO TID Ranitidine (Zantac), 150 MG PO BID Lorazepam (Ativan), 2 MG PO DAILY PRN for Anxiety If you have any questions please call us at [phone] or [phone] or [phone]
[2017-03-09 14:01] LABS: BASO % 0.3 %; BASO ABS # 0.02 K/uL (0-0.2); COMPLETE YES; EOS % 2.5 %; IG% 0.1 %; LYMPH % 30.6 %; LYMPH ABS # 2.12 K/uL (1.2-3.4); MEAN CELL VOLUME 92.3 fL (80-100); MEAN CORPUSCULAR HEMOGLOBIN 31.2 pg (25-34); MEAN CORPUSCULAR HGB CONC 33.8 g/dl (32-36); MEAN PLATELET VOLUME 10.7 fL (7.4-10.4); MONO % 9.5 %; PLATELET COUNT 227 K/uL (130-400); RED BLOOD COUNT 4.55 M/uL (4.7-6.1); WHITE BLOOD COUNT 6.92 K/uL (4.8-10.8)
[2017-03-09 14:24] LABS: BUN/CREATININE RATIO 18.8 (10-20); CALCIUM 8.7 mg/dl (8.5-10.1); CREATININE 0.83 mg/dl (0.60-1.40); POTASSIUM 4.5 mmol/L (3.5-5.1)
[~2017-03-23] VITALS: Ht 188 cm; Wt 177.4 kg
[2017-03-23 05:52] VITALS: BP 109/57; PULSE 76; TEMP 37.2; O2SAT 95; Ht 188 cm; Wt 177.4 kg
[2017-03-23] MEDS ORDERED: LACTATED RINGER'S 1000ML 1,000 ML IV SCH (06:00)
[2017-03-23] MEDS ORDERED: CIPROFLOXACIN / D5W 400 MG IV SCH (06:00)
[2017-03-23] MEDS ORDERED: MIDAZOLAM HCL 1 MG/ML 2ML VIAL ONE ×2 (06:58→07:36)
[2017-03-23] MEDS ORDERED: FENTANYL CITRATE INJ 50 MCG/1 ML 2 ML VIAL ONE (06:58)
--- NOTE | 2017-03-23 07:22 | History & Physical Bridge Note ---
H&P Re-Evaluation Bridge Note: I have examined the patient, reviewed the History & Physical and in the interval since the performance of the History & Physical I have noted the following changes of clinical significance: No changes noted
[2017-03-23] MEDS ORDERED: KETAMINE HCL INJ 50 MG/ML 10 ML VIAL ONE (07:41)
--- NOTE | 2017-03-23 08:01 | [facility] Post Operative Brief Note ---
Immediate Operative Summary Operative Date Mar 23, 2017. Pre-Operative Diagnosis Benign Prostatic Hyperplasia Post-Operative Diagnosis Same Procedure(s) Performed Cystoscopy, Urolift Surgeon Administrative Support Coordinator Surgeon(s) None Estimated Blood Loss 0ml Findings moderate lateral lobe hypertrophy (prior TURP) Specimens None per surgeon Drains 20F yousif Anesthesia MAC Complication(s) None Disposition Recovery Room / PACU (stable)
[2017-03-23] MEDS ORDERED: ACET-749 PO (08:02)
[2017-03-23] MEDS ORDERED: CIPR-255 PO (08:02)
[2017-03-23] MEDS ORDERED: SODIUM CHLORIDE 0.9% 1000ML 1,000 ML IV SCH (08:05)
--- NOTE | 2017-03-23 08:05 | Discharge Instructions ---
Discharge Instructions Date of Service Mar 23, 2017. Admission Reason for Admission: Benign Prostatic Hyperplasia Discharge Discharge Diagnosis / Problem: BPH; urinary retention Discharge Goals Goal(s): Decrease discomfort, Improve function, Increase independence, Improve disease control Activity Recommendations Activity Limitations: resume your previous activity Lifting Limitations: none Exercise/Sports Limitations: none May Resume Sexual Activity: when tolerated Shower/Bathe: no limitations Driving or Machine Use: resume 1 day after discharge . Instructions / Follow-Up Instructions / Follow-Up Dr. Manrique's office will contact you later today to set up a voiding trial ( removal of the catheter) for . Discharge Diet Recommended Diet: Diabetes Type 2 Diet Procedures Procedures Performed: Cystoscopy, Urolift Pending Studies Studies pending at discharge: no Medical Emergencies . Who to Call and When: Medical Emergencies: If at any time you feel your situation is an emergency, please call 911 immediately. . Non-Emergent Contact Non-Emergency issues call your: Urologist Call Non-Emergent contact if: you have a fever, your pain is not controlled, your pain is worsening . . "Provider Documentation" section prepared by Bertin Gill. . VTE Core Measure Inpt VTE Proph given/why not?: Treatment not indicated [place] Drug Monitoring Program Search Results: patient reviewed within database Drug Monitoring Findings: pt with numerous narcotic rx's over the past year - I have reluctantly provided a 10 pill rx given his surgical procedure today
--- NOTE | 2017-03-23 08:08 | [facility] Operative Report ---
Operative Report Operative Date Mar 23, 2017. Pre-Operative Diagnosis Benign Prostatic Hyperplasia Post-Operative Diagnosis Same Procedure(s) Performed Cystoscopy, Urolift Surgeon Journeyman Level Acoustic Analyst Surgeon(s) None Estimated Blood Loss 0ml Findings Lateral lobe hypertrophy (moderate) - prior TURP Specimens None per surgeon Drains 20F yousif Anesthesia MAC Complication(s) None Disposition Recovery Room / PACU (stable) Indications Urinary retention Description of Procedure Patient was identified in the preoperative holding area, appropriate informed consents were reviewed and completed and the patient was transported to the operating suite. Upon arrival he received appropriate preoperative antibiotics in the form of ciprofloxacin. Adequate sedation was achieved, and he was placed in dorsal lithotomy position where he was sterilely prepped and draped in standard fashion. I began the case by passing a cystoscope with 0 lens. Inspection of the urethra revealed healthy-appearing mucosa without evidence of strictures. Prostate was inspected, and he was noted to have lateral lobe hypertrophy ( regrowth from prior TURP). Full inspection of the bladder was carried out. There were no tumors, stones, or other abnormalities. I then exchanged the visual obturator for the first uro-lift device. The first suture was deployed on the right side of the prostate approximately 1 cm from the veru montanum. A mirror image suture was then deployed on the left. His prostatic urethra appeared to be widely patent after these two devices were placed, and we elected to conclude the case. There was excellent hemostasis. I reinspected the bladder and prostate and confirmed an excellent anterior channel. A 20F yousif catheter was placed and he was reversed from anesthesia and taken the PACU in stable condition. I attest to the content of the Intraoperative Record and any orders documented therein. Any exceptions are noted below.
[2017-03-23] MEDS ORDERED: HYDROmorphone INJ 1 MG/ML SYR ONE (08:13)
[2017-03-23] MEDS ORDERED: EpHEDrine SULFATE INJ 50 MG/ML AMP IV PRN (08:15)
[2017-03-23] MEDS ORDERED: HYDROmorphone INJ 2 MG/ML SYR/VIAL IV PRN (08:15)
[2017-03-23] MEDS ORDERED: ACETAMINOPHEN 325 MG TAB PO PRN (08:15)
[2017-03-23] MEDS ORDERED: HYDROCODONE/ACETAMOPHEN 5/325MG TAB PO PRN ×2 (08:15)
[2017-03-23] MEDS ORDERED: ATROPINE SULFATE 0.1 MG/ML 5ML SYR IV PRN (08:15)
[2017-03-23] MEDS ORDERED: PHENYLEPHRINE 100MCG/ML 5ML SYR IV PRN (08:15)
[2017-03-23] MEDS ORDERED: ONDANSETRON INJ 2 MG/ML 2 ML VIAL IV PRN (08:15)
[2017-03-23] MEDS ORDERED: HYDROmorphone INJ 2 MG/ML SYR/VIAL ONE (08:27)
[2017-03-23 08:58] VITALS: BP 108/56; PULSE 75; TEMP 36.7; O2SAT 93
--- NOTE | 2017-03-23 09:17 | Anesthesiology Progress Note ---
Anesthesia Post Op Note Date & Time Mar 23, 2017 at 09:16 Vital Signs Pain Intensity: 4 Vital Signs Past 12 Hours Date Time Temp Pulse Resp B/P (MAP) Pulse Ox O2 Delivery O2 Flow Rate FiO2 03/23/17 08:58 36.7 75 20 108/56 93 Room Air 03/23/17 08:50 36.4 76 20 138/77 94 Room Air 03/23/17 08:40 76 20 121/83 94 Room Air 03/23/17 08:30 77 20 115/77 94 Room Air 03/23/17 08:20 80 20 135/73 97 Oxymask 10 03/23/17 08:10 82 20 130/62 96 Oxymask 10 03/23/17 08:04 36.7 81 16 100/66 96 Oxymask 10 03/23/17 05:52 37.2 76 20 109/57 (74) 95 Room Air Notes Mental Status: alert / awake / arousable, participated in evaluation Pt Amnestic to Procedure: Yes Nausea / Vomiting: adequately controlled Pain: adequately controlled Airway Patency, RR, SpO2: stable & adequate BP & HR: stable & adequate Hydration State: stable & adequate Anesthetic Complications: no major complications apparent
[2017-03-23 09:28] VITALS: BP 118/68; PULSE 70; TEMP 36.7; O2SAT 94
[2017-03-23] MEDS ORDERED: LIDOCAINE HCL 2% 2 ML VIAL (20MG/ML) ONE (10:03)
[2017-03-23] MEDS ORDERED: PROPOFOL IV EMULSION 10 MG/ML 20 ML VIAL IV ONE (10:03)
== END 2017-03-23 09:51 | disposition home or self-care (01) ==
LOC: C.ACU 05:25
PROVIDERS: ATTEND Urology
DX: N40.1 Benign prostatic hyperplasia with lower urinary tract symptoms (principal); N13.8 Other obstructive and reflux uropathy; R33.9 Retention of urine, unspecified; E66.01 Morbid (severe) obesity due to excess calories; G47.33 Obstructive sleep apnea (adult) (pediatric); E11.9 Type 2 diabetes mellitus without complications; Z86.73 Personal history of transient ischemic attack (TIA), and cerebral infarction without residual deficits; F32.9 Major depressive disorder, single episode, unspecified; K21.9 Gastro-esophageal reflux disease without esophagitis; Z82.49 Family history of ischemic heart disease and other diseases of the circulatory system; Z79.82 Long term (current) use of aspirin

== ENCOUNTER 2017-06-22 14:54 | Emergency (ER) | payer OTHER ==
[~2017-06-22] VITALS: Ht 188 cm; Wt 176.6 kg
[~2017-06-22 14:54] MED LIST changes: +ACET-749 PO; +CIPR-255 PO; -FLM4 PO; -OXYB5TAB74 PO
[2017-06-22 14:57] VITALS: TEMP 36.8; Ht 188 cm; Wt 176.6 kg
--- NOTE | 2017-06-22 15:55 | EMERGENCY ROOM VISIT NOTE ---
History Report prepared by Dorita: Telma Lincoln Under the Supervision of: Dr. Liana Strange M.D. First contact with patient: 15:44 Chief Complaint: SWELLING TO EXTREMITY Stated Complaint: INFECTED, SWOLLEN LEG, TIGHTNESS IN CHEST History of Present Illness The patient is a 61 year old male who presents to the Emergency Room with complaints of worsening swelling and pain to his right leg beginning two days ago. The patient reports he reused a needle for a shot of testosterone because he was out of new ones. He notes the area of where he injected himself is swollen and red. He denies any fever. He also reports chest tightness beginning today. He reports his chest tightness does not radiate anywhere. The patient notes taking full aspirin today. Source of History: patient Onset: two days ago Position: leg (right) Quality: other (swelling and pain) Timing: worsening Associated Symptoms: + chest pain, No fevers Review of Systems See HPI for pertinent positives & negatives. A total of 10 systems reviewed and were otherwise negative. Past Medical & Surgical Medical Problems: (1) Anxiety (2) Chest pain (3) Diabetes mellitus (4) Infected sebaceous cyst (5) Laser prostate surgery (6) Nasal surgery (7) New onset left bundle branch block (LBBB) (8) Pneumonia (9) TIA (transient ischemic attack) (10) Tonsillectomy Family History FH: migraines Social History Smoking Status: Never Smoker Alcohol Use: none Drug Use: none Marital Status: Housing Status: lives with family Occupation Status: disabled Current/Historical Medications Scheduled Aspirin (Aspirin 81), 1 TAB PO QAM Atorvastatin (Lipitor), 80 MG PO HS Buspirone HCl (Buspirone HCl), 20 MG PO BID Carbamazepine (Tegretol Xr), 400 MG PO BID Cephalexin Monohydrate (Keflex), 500 MG PO QID Escitalopram (Lexapro), 30 MG PO QPM Gabapentin (Gabapentin), 600 MG PO BID Insulin Glargine (Lantus Solostar), 50 SC BID Insulin Lispro (Human) (Humalog Kwikpen), 24 UNITS SC TIDM Lidocaine (Aspercreme Lidocaine Max), 1 APPLN EX DIRECTED Lidocaine Hcl (Lidocaine Hcl Jelly), 1 APPLN EX DIRECTED Liraglutide (Victoza), 0.6 MG SQ QPM Loratadine (Claritin), 10 MG PO QAM Multiple Vitamin (Multi Vitamin), 1 TAB PO QPM Ranitidine (Zantac), 150 MG PO BID Testosterone Cypionate (Testosterone Cypionate), 0.75 ML IM EVERY WEDNESDAY Scheduled PRN Lorazepam (Ativan), 2 MG PO DAILY PRN for Anxiety Allergies Coded Allergies: Morphine (Verified Allergy, Intermediate, SHAKES, 06/22/17) Propoxyphene (Verified Allergy, Intermediate, SHAKES (DARVOCET), 06/22/17) Metformin (Verified Adverse Reaction, Unknown, DIARRHEA, 06/22/17) Physical Exam Vital Signs Date Time Temp Pulse Resp B/P (MAP) Pulse Ox O2 Delivery O2 Flow Rate FiO2 06/22/17 18:55 71 16 123/95 95 06/22/17 18:23 71 16 123/95 95 Room Air 06/22/17 17:07 72 17 139/81 97 Room Air 06/22/17 14:57 36.8 76 20 133/72 98 Room Air Physical Exam Vital signs reviewed. General: Well-appearing, obese male, in no significant distress. HEENT: No scleral icterus, PERRLA, neck supple. Atraumatic. Cardiovascular: Regular rate and rhythm, no extra sounds. Pulmonary: Clear to auscultation bilaterally, normal work of breathing. Abdomen: Soft, nontender, nondistended, positive bowel sounds. Musculoskeletal: Atraumatic, no peripheral edema. Neurologic: Patient awake alert and oriented x 3, full strength in all 4 extremities. Cranial nerves 2 through 12 grossly intact. Skin: Right thigh area of induration about 4 cm. Otherwise, warm, dry, no rash Medical Decision & Procedures ER Provider Diagnostic Interpretation: Radiology results as stated below per my review and radiologist interpretation: SINGLE VIEW CHEST CLINICAL HISTORY: Atypical chest pain. FINDINGS: An AP, portable, upright chest radiograph is compared to study dated 10/06/2016. The examination is degraded by portable technique, large body habitus, and patient rotation. The heart is enlarged and there is atherosclerotic calcification of the thoracic aorta. The pulmonary vasculature is noncongested. There are bibasilar airspace opacities.. No large pleural effusion or pneumothorax is seen. The skeletal structures are osteopenic. The bony thorax is grossly intact. IMPRESSION: 1. Cardiomegaly without radiographic evidence of congestive failure. 2. There are bibasilar airspace opacities, likely representing atelectasis. Correlate clinically for evidence of developing pneumonia. Electronically signed by: Alexis Caldwell M.D. RIGHT THIGH SOFT TISSUE ULTRASOUND FINDINGS: Within the right lateral thigh, there is cutaneous and subcutaneous edema. There is a complex noncircumscribed hypoechoic collection measuring approximately 52 x 13 x 20 mm. This could represent either a phlegmon, or hematoma. An addition medial to the point of clinical concern there is a nonspecific shadowing 12 x 9 x 13 mm hypoechoic nodule. IMPRESSION: 1. Right lateral thigh edema 2. Complex ill-defined noncircumscribed fluid within the lateral thigh measuring 52 x 13 x 20 mm. This could represent a hematoma, or phlegmon. 3. Nonspecific 12 x 9 x 13 mm hypoechoic nodule located medial to the point of clinical concern Electronically signed by: Philip Aguirre M.D. Laboratory Results 06/22/17 16:18 Red Blood Count 4.65, Mean Corpuscular Volume 96.3, Mean Corpuscular Hemoglobin 33.3, Mean Corpuscular Hemoglobin Concent 34.6, Mean Platelet Volume 9.7, Neutrophils (%) (Auto) 49.9, Lymphocytes (%) (Auto) 33.8, Monocytes (%) (Auto) 12.5, Eosinophils (%) (Auto) 3.1, Basophils (%) (Auto) 0.6, Neutrophils # (Auto ) 3.50, Lymphocytes # (Auto) 2.37, Monocytes # (Auto) 0.88, Eosinophils # (Auto ) 0.22, Basophils # (Auto) 0.04 06/22/17 16:18 Test 06/22/17 16:18 06/22/17 16:23 White Blood Count 7.02 K/uL (4.8-10.8) Red Blood Count 4.65 M/uL (4.7-6.1) Hemoglobin 15.5 g/dL (14.0-18.0) Hematocrit 44.8 % (42-52) Mean Corpuscular Volume 96.3 fL (80-100) Mean Corpuscular Hemoglobin 33.3 pg (25-34) Mean Corpuscular Hemoglobin Concent 34.6 g/dl (32-36) Platelet Count 249 K/uL (130-400) Mean Platelet Volume 9.7 fL (7.4-10.4) Neutrophils (%) (Auto) 49.9 % Lymphocytes (%) (Auto) 33.8 % Monocytes (%) (Auto) 12.5 % Eosinophils (%) (Auto) 3.1 % Basophils (%) (Auto) 0.6 % Neutrophils # (Auto) 3.50 K/uL (1.4-6.5) Lymphocytes # (Auto) 2.37 K/uL (1.2-3.4) Monocytes # (Auto) 0.88 K/uL (0.11-0.59) Eosinophils # (Auto) 0.22 K/uL (0-0.5) Basophils # (Auto) 0.04 K/uL (0-0.2) RDW Standard Deviation 46.6 fL (36.4-46.3) RDW Coefficient of Variation 13.2 % (11.5-14.5) Immature Granulocyte % (Auto) 0.1 % Immature Granulocyte # (Auto) 0.01 K/uL (0.00-0.02) Anion Gap 6.0 mmol/L (3-11) Est Creatinine Clear Calc Drug Dose 164.6 ml/min Estimated GFR () 111.7 Estimated GFR (Non- 96.4 BUN/Creatinine Ratio 19.2 (10-20) Calcium Level 8.8 mg/dl (8.5-10.1) Magnesium Level 1.9 mg/dl (1.8-2.4) Total Bilirubin 0.3 mg/dl (0.2-1) Direct Bilirubin < 0.1 mg/dl (0-0.2) Aspartate Amino Transf (AST/SGOT) 14 U/L (15-37) Alanine Aminotransferase (ALT/SGPT) 27 U/L (12-78) Alkaline Phosphatase 103 U/L (45-117) Total Creatine Kinase 74 U/L (39-308) Creatine Kinase MB 0.8 ng/ml (0.5-3.6) Creatine Kinase MB Ratio 1.1 (0-3.0) Total Protein 7.8 gm/dl (6.4-8.2) Albumin 3.5 gm/dl (3.4-5.0) Bedside Troponin I < 0.030 ng/ml (0-0.045) Laboratory results per my review. Medications Administered Medications (Trade) Dose Ordered Sig/Kathy Route Start Time Stop Time Status Last Admin Dose Admin Cephalexin Monohydrate (Keflex Cap) 500 mg NOW ONCE PO 06/22/17 18:30 06/22/17 18:32 DC 06/22/17 18:47 500 MG Cephalexin Monohydrate (Keflex 500MG Home Pack) 1 homepack NOW ONCE PO 06/22/17 18:45 06/22/17 18:46 DC 06/22/17 18:46 1 HOMEPACK ECG Indication: chest pain Rate (beats per minute): 76 Rhythm: normal sinus Findings: no acute ischemic change, no ectopy ED Course 154: Past medical records reviewed. The patient was evaluated in room A4B. A complete history and physical examination was performed. 1829: Ordered Keflex Cap 500 mg PO. 1844: Ordered Cephalexin Monohydrate 1 homepack PO. 1851: Upon reevaluation, the patient appeared to have improvement of his symptoms. I discussed findings with him. He verbalized agreement of the treatment plan. The patient was discharged home. Medical Decision Differential diagnosis: Etiologies such as cellulitis, abscess, MRSA infection, DVT, necrotizing fasciitis, dermatitis, drug eruption, as well as others were entertained.. This patient was evaluated and appeared to be in no significant distress. Physical examination reveals a small area of induration to the right proximal thigh. Ultrasound reveals a small fluid collection that is consistent with hematoma or phlegmon. Patient's WBC is normal. Patient was given Keflex 500 mg by mouth. His given a Keflex home pack as well as a prescription. I do not think is of the patient's best interest to drain this area. The wound should be reevaluated within the next several days. He was advised to follow-up with his PCP this week for reevaluation and to return to the ER for worsening of symptoms or any medical concerns. Medication Reconcilliation Current Medication List: was personally reviewed by me Blood Pressure Screening Patient's blood pressure: Normal blood pressure Impression Primary Impression: Cellulitis of right thigh Scribe Attestation The scribe's documentation has been prepared under my direction and personally reviewed by me in its entirety. I confirm that the note above accurately reflects all work, treatment, procedures, and medical decision making performed by me. Departure Information Dispostion Home / Self-Care Prescriptions Cephalexin Monohydrate (Keflex) 500 Mg Cap 500 MG PO QID, #28 CAP Prov: Liana Strange M.D. 06/22/17 Referrals Una Galindo (PCP) Forms HOME CARE DOCUMENTATION FORM, IMPORTANT VISIT INFORMATION, WORK / SCHOOL INSTRUCTIONS Patient Instructions My [facility] Additional Instructions Diagnosis: Cellulitis Keflex 500 mg 4 times daily for 7 days. Follow-up with your primary care physician for reevaluation of the right thigh cellulitis. Use a clean needle with each medication injection. Return to the emergency department for worsening of symptoms or any medical concerns.
[2017-06-22] MEDS ORDERED: CARB1TAB15 PO (15:58)
--- NOTE | 2017-06-22 16:12 | DIAGNOSTIC IMAGING REPORT ---
SINGLE VIEW CHEST CLINICAL HISTORY: Atypical chest pain. FINDINGS: An AP, portable, upright chest radiograph is compared to study dated 10/06/2016. The examination is degraded by portable technique, large body habitus, and patient rotation. The heart is enlarged and there is atherosclerotic calcification of the thoracic aorta. The pulmonary vasculature is noncongested. There are bibasilar airspace opacities.. No large pleural effusion or pneumothorax is seen. The skeletal structures are osteopenic. The bony thorax is grossly intact. IMPRESSION: 1. Cardiomegaly without radiographic evidence of congestive failure. 2. There are bibasilar airspace opacities, likely representing atelectasis. Correlate clinically for evidence of developing pneumonia. Electronically signed by: Alexis Caldwell M.D. 06/22/2017 4:11 PM Dictated Date/Time: 06/22/2017 4:10 PM
[2017-06-22 16:34] LABS: BASO % 0.6 %; BASO ABS # 0.04 K/uL (0-0.2); EOS % 3.1 %; EOS ABS # 0.22 K/uL (0-0.5); HEMATOCRIT 44.8 % (42-52); HEMOGLOBIN 15.5 g/dL (14.0-18.0); IG# 0.01 K/uL (0.00-0.02); LYMPH % 33.8 %; LYMPH ABS # 2.37 K/uL (1.2-3.4); MEAN CELL VOLUME 96.3 fL (80-100); MEAN CORPUSCULAR HEMOGLOBIN 33.3 pg (25-34); MEAN CORPUSCULAR HGB CONC 34.6 g/dl (32-36); MEAN PLATELET VOLUME 9.7 fL (7.4-10.4); MONO % 12.5 %; MONO ABS # 0.88 K/uL (0.11-0.59); NEUT % 49.9 %; PLATELET COUNT 249 K/uL (130-400); RED CELL DISTRIBUTION WIDTH CV 13.2 % (11.5-14.5); RED CELL DISTRIBUTION WIDTH SD 46.6 fL (36.4-46.3); WHITE BLOOD COUNT 7.02 K/uL (4.8-10.8)
[2017-06-22 17:10] LABS: ALBUMIN 3.5 gm/dl (3.4-5.0); ALKALINE PHOSPHATASE 103 U/L (45-117); ALT/SGPT 27 U/L (12-78); AST/SGOT 14 U/L (15-37); BLOOD UREA NITROGEN 15 mg/dl (7-18); CALCIUM 8.8 mg/dl (8.5-10.1); CARBON DIOXIDE 28 mmol/L (21-32); CKMB 0.8 ng/ml (0.5-3.6); GLUCOSE 78 mg/dl (70-99); POTASSIUM 4.3 mmol/L (3.5-5.1); SODIUM 136 mmol/L (136-145); TOTAL PROTEIN 7.8 gm/dl (6.4-8.2)
--- NOTE | 2017-06-22 18:17 | DIAGNOSTIC IMAGING REPORT ---
RIGHT THIGH SOFT TISSUE ULTRASOUND CLINICAL HISTORY: Right thigh swelling COMPARISON STUDY: No previous studies for comparison. FINDINGS: Within the right lateral thigh, there is cutaneous and subcutaneous edema. There is a complex noncircumscribed hypoechoic collection measuring approximately 52 x 13 x 20 mm. This could represent either a phlegmon, or hematoma. An addition medial to the point of clinical concern there is a nonspecific shadowing 12 x 9 x 13 mm hypoechoic nodule. IMPRESSION: 1. Right lateral thigh edema 2. Complex ill-defined noncircumscribed fluid within the lateral thigh measuring 52 x 13 x 20 mm. This could represent a hematoma, or phlegmon. 3. Nonspecific 12 x 9 x 13 mm hypoechoic nodule located medial to the point of clinical concern Electronically signed by: Philip Aguirre M.D. 06/22/2017 6:15 PM Dictated Date/Time: 06/22/2017 6:13 PM
[2017-06-22] MEDS ORDERED: CEPHALEXIN MONOHYDRATE 250 MG CAP PO ONE (18:30)
[2017-06-22] MEDS ORDERED: CEPH500C PO (18:33)
[2017-06-22] MEDS ORDERED: CEPHALEXIN 500MG HOME PACK 1 EA BTL PO ONE (18:45)
[2017-06-22 18:55] VITALS: BP 123/95; PULSE 71; O2SAT 95
== END 2017-06-22 18:56 | disposition home or self-care (01) ==
LOC: C.EDB 14:56 → C.EDA 18:56
DX: L03.115 Cellulitis of right lower limb (principal); R07.89 Other chest pain; E11.9 Type 2 diabetes mellitus without complications; Z79.82 Long term (current) use of aspirin; Z79.4 Long term (current) use of insulin; Z79.890 Hormone replacement therapy

== ENCOUNTER → 2017-06-25 | Outpatient (CLI) | payer OTHER ==
[~2017-06-25] MED LIST changes: -ACET-749 PO; +CARB1TAB15 PO; -CARB200T PO; +CEPH500C PO; -CIPR-255 PO; -PHEN-876 PO
[2017-06-25 12:34] LABS: HEMOGLOBIN A1C 6.4 % (4.5-5.6)
== END | disposition home or self-care (01) ==
LOC: C.LAB1850 10:50
PROVIDERS: ATTEND Psychiatry & Neurology Neurology
DX: E55.9 Vitamin D deficiency, unspecified (principal); E11.9 Type 2 diabetes mellitus without complications; G57.11 Meralgia paresthetica, right lower limb

== ENCOUNTER → 2017-12-29 | Outpatient (CLI) | payer OTHER ==
[~2017-12-29] MED LIST changes: -CEPH500C PO; +RANI150T85 PO; -ZNTT/150 PO
[2017-12-29 17:26] LABS: ALBUMIN 3.4 gm/dl (3.4-5.0); ALKALINE PHOSPHATASE 109 U/L (45-117); ALT/SGPT 32 U/L (12-78); AST/SGOT 16 U/L (15-37); BLOOD UREA NITROGEN 15 mg/dl (7-18); CARBON DIOXIDE 28 mmol/L (21-32); CHOLESTEROL 129 mg/dl (0-200); CREATININE 0.88 mg/dl (0.60-1.40); GLUCOSE 137 mg/dl (70-99); LDL CHOLESTEROL CALCULATED 53 mg/dl; POTASSIUM 4.3 mmol/L (3.5-5.1); SODIUM 136 mmol/L (136-145); TOTAL PROTEIN 7.9 gm/dl (6.4-8.2)
== END | disposition home or self-care (01) ==
LOC: C.LAB1850 15:08
PROVIDERS: ATTEND Internal Medicine Endocrinology, Diabetes & Metabolism
DX: E66.01 Morbid (severe) obesity due to excess calories (principal); E78.5 Hyperlipidemia, unspecified; E29.1 Testicular hypofunction; E11.9 Type 2 diabetes mellitus without complications; E55.9 Vitamin D deficiency, unspecified

== ENCOUNTER 2021-01-07 23:06 | Inpatient (IN) ==
[2021-01-08] MEDS ORDERED: SODIUM CHLORIDE 0.9% 1000ML 1,000 ML IV ONE ×3 (00:13→01:36)
[2021-01-08] MEDS ORDERED: fentaNYL citrate 100 MCG/2 ML VIAL IV STA ×2 (00:15→01:49)
--- NOTE | 2021-01-08 00:16 | Emergency Department Note ---
Impression & Plan Sepsis, Acute hypotension ED Provider Note Name: GINO VAZQUEZ Age: 65 Sex: M Arrives Via: Walk-In Informant: Patient, ED Provider: Taj Burns MD Chief Complaint: Fever Impression: Sepsis Acute Hypotension Medical Decision Makin yr old male with extensive PMH including DMII, Gerd, hlp, bph, arrives for fever with extensive other symptoms. On exam ill appearing, dehydrated and febrile. Septic work-up initiated and once blood cultures obtained broad spectrum abx ordered. CXR with bilateral mild infiltrates vs poor penetration. Does note mildly productive cough though not sob nor hypoxic on arrival. Abdomen is soft and non-tender. Labs with normal wbc/lactate though procal is elevated concerning for sepsis. Further fluids required given no UOP and BP trending down. UA eventually obtained and no clear evidence infection. Hosp italist consulted for further management. Prior Medical Record and Triage/Nursing Notes reviewed by Me Additional history obtained from chart Differentials:Viral syndrome, otitis, pharyngitis, pneumonia, influenza, meningitis, urinary tract infection, sepsis, bacteremia, as well as other pathologies. Vital Signs: reviewed and remarkable for fever, tachy, hypotension Interventions: saline lock, nss bolus 3+ L IV, Zosyn iv, Vanco IV, fentanyl iv x 2, tylenol iv Given the patients BMI >30, IBW was used to calculate the 30ml/kg fluid bolus. Labs:Reviewed and remarkable for elevated procalcitonin Imaging:X ray results are stated below per my interpretation: Chest: 1 view: Bilateral congestion vs infiltrate vs poor penetration EKG:Per My Interpretation: Indication Sepsis: Sinus Tach 121 bpm, qtc 417. No Ectopy. No Ischemia. Compared to EKG 06/21/20 similar morphology with increased heart rate Cardiac/Tele Monitoring: Cardiac Monitoring: An Order was placed for continuous cardiac monitoring. The monitor shows a rate of 120 with a sinus tach rhythm. Consults:Dr Amna FRANK Hospitalist Plan: Disposition:Hospitalization. Condition: Good History of Present Illness:65 yr old male arrives for evaluation of fever. Patient with 3 hours of fevers. Increasing body aches, fatigue, cough, chills, weakness, headache, nausea, and malaise. Unable to stop shaking. Nothing makes better. Started this afternoon without inciting event. Exertion makes worse. Denies trauma. Tylenol prior to arrival without improvement. No one else is sick. Denies syncope, neck stiffness, rashes, urinary symptoms, leg swelling, calf pain, nor other symptoms. Covid vaccine already given a few months ago. ROS: See above HPI for pertinent positives & negatives. A total of 10 systems reviewed and were otherwise negative. Past Medical History:See Below Past Surgical History:See Below Family History:See Below Social History:See Below Home Medications:See Below Allergies:See Below Vitals:Blood Pressure: 98/63, Pulse 120, RR 25, T 39.5C, O2 98% on RA Physical Exam: GENERAL: Patient is ill appearing and in moderate distress. EYES: No scleral icterus, unremarkable pupils. ENT: Mucous membranes dry, no nasal congestion. NECK: No masses appreciated, nomeningismus, trachea is midline. RESPIRATORY: Mild tachypnea/dyspnea without wheezing/crackles CARDIOVASCULAR: Tachy.No murmurs, rubs, gallops appreciated. GASTROINTESTINAL: Abdomen soft, non-tender, no peritonitis.Bowel sounds positive.No masses appreciated. BACK: No midline tenderness, no CVA tenderness EXTREMITIES: Normal motion all extremities, no cyanosis, no edema. NEUROLOGIC: Alert and oriented, no acute motor or sensory deficits, no focal weakness, cranial nerves grossly intact. SKIN: No rash, no jaundice, no diaphoresis. PSYCH: Appropriate GCS: 15 ED Course: Times/Reassessments: multiple and eventually improving symptoms though still a bit low BP improved with fluids. Critical Care: I have personally spent 35 minutes of critical care time in the direct management of this patient. Sepsis uncertain etiology with hypotension requiring aggressive fluid resus and management. This was a life/limb threatening event. This 35 minutes is in excess of all separately billable procedures. Taj Burns MD Past Med/Surg History Medical History (Updated 01/09/21 @ 04:12 by Taj Burns MD) Anxiety Benign localized prostatic hyperplasia with lower urinary tract symptoms (LUTS) Bile duct abnormality INFLAMMATION Depression Diabetes mellitus, type 2 GERD (gastroesophageal reflux disease) Impingement syndrome, shoulder, left Meralgia paresthetica Migraine Surgical History History of colonoscopy History of cystoscopy History of esophagogastroduodenoscopy (EGD) History of gastric bypass History of nasal septoplasty History of tonsillectomy and adenoidectomy History of tooth extraction S/P robot-assisted surgical procedure Family History Mother Cerebral aneurysm Father Cardiac disorder Other No family history of adverse response to anesthesia Social History Smoking Status: Never smoker Second Hand Exposure: Yes (parents smoked); Hx Alcohol Use: Yes Alcohol type: beer, wine and hard liquor Hx Substance Use: No Preferred Language: Kyrgyz Communication Ability: Effective Shells Inspector Required: No Beliefs That Will Affect Care: None Current Living Situation: Spouse and Family Current Living Situation Comment: Lives with and oldest daughter and daughter's boyfriend Feels Safe at Home: Yes Assistive Devices: CPAP and Glasses Allergies Allergies Allergy/AdvReac Type Severity Reaction Status Date / Time propoxyphene Allergy Intermediate Shakiness Verified 01/08/21 00:26 metformin AdvReac Mild Diarrhea Verified 01/08/21 00:26 NSAIDS (Non-Steroidal AdvReac Unknown Only PO Verified 01/08/21 00:26 Anti-Inflamma meds - Contraindicated, had Bariatric Surgery Home Meds Home Medications Medication Instructions Recorded Confirmed buspirone 10 mg tablet 20 mg PO BID 05/16/18 01/08/21 lorazepam 1 mg tablet (Ativan) 1 mg PO DAILY PRN 05/16/18 01/08/21 escitalopram oxalate 10 mg tablet 10 mg PO HS 06/30/18 01/08/21 escitalopram oxalate 20 mg tablet 20 mg PO HS 06/30/18 01/08/21 gabapentin 600 mg tablet 600 mg PO BID 03/24/20 01/08/21 sodium chloride 0.65 % nasal spray 1 spray INTRANASAL BID PRN 03/24/20 01/08/21 aerosol (Saline Nasal Mist) cyanocobalamin (vitamin B-12) 1,000 mcg IM MONTHLY 06/21/20 01/08/21 1,000 mcg/mL injection solution fexofenadine 180 mg tablet 180 mg PO DAILY 06/21/20 01/08/21 ondansetron HCl 4 mg tablet 4 mg PO Q8H PRN 06/21/20 01/08/21 pediatric multivit no.79-ferrous 1 tab PO DAILY 06/21/20 01/08/21 fumarate 18 mg iron chewable tablet (Flintstones with Iron) Previous Rx's Medication Instructions Recorded meclizine 25 mg tablet 25 mg PO TID PRN #30 tab 06/21/20 safety needles 18 gauge x 1 1/2" #100 ea 08/14/20 (BD SafetyGlide Needle) syringe with needle 3 mL 25 x 5/8" #50 ea 08/14/20 (BD Eclipse Luer-Talia) testosterone cypionate 200 mg/mL 150 mg IM .weekly #10 ml 08/14/20 intramuscular kit pregabalin 300 mg capsule 300 mg PO BID 30 Days #60 cap 10/28/20 tadalafil 20 mg tablet 20 mg PO DAILY #30 tab 01/07/21 Results & Data (ED) Vital Signs Vital Signs - 24 hr 01/07/21 23:12 Temperature 38.2 C H Temperature Source Temporal Artery Scan Pulse Rate 94 H Pulse Rhythm Regular Pulse Strength Normal Respiratory Rate 18 Respiratory Effort / Characteristics Non-Labored Spontaneous Respiratory Depth Normal Respiratory Pattern Regular Blood Pressure 112/60 Blood Pressure Mean 77 Blood Pressure Position Sitting Pulse Oximetry 96 Oxygen Delivery Method Room Air Sepsis Recent Fever Within 48 Hours Yes Sepsis New/Unexplained Change in Mental Status N/A Sepsis Action Taken by Nursing No Action Required Laboratory Data Result diagrams: 01/08/21 00:20 01/08/21 00:20 Lab Results 01/08/21 01/08/21 01/08/21 Range/Units 00:20 00:20 00:20 WBC 9.78 (4.8-10.8) K/uL RBC 4.60 L (4.7-6.1) M/uL Hgb 14.8 (14.0-18.0) g/dL Hct 43.5 (42-52) % MCV 94.6 (80-100) fL MCH 32.2 (25-34) pg MCHC 34.0 (32-36) g/dL RDW Std Deviation 49.2 H (36.4-46.3) fL RDW Coeff of Keri 14.3 (11.5-14.5) % Plt Count 187 (130-400) K/uL MPV 10.8 H (7.4-10.4) fL Immature Gran % (Auto) 0.2 % Neut % (Auto) 84.6 % Lymph % (Auto) 9.9 % [place] % (Auto) 4.8 % Eos % (Auto) 0.4 % Baso % (Auto) 0.1 % Neut # (Auto) 8.27 H (1.4-6.5) K/uL Lymph # (Auto) 0.97 L (1.2-3.4) K/uL [place] # (Auto) 0.47 (0.11-0.59) K/uL Eos # (Auto) 0.04 (0-0.5) K/uL Baso # (Auto) 0.01 (0-0.2) K/uL Immature Gran # (Auto) 0.02 (0.00-0.02) K/uL Sodium 135 L (136-145) mmol/L Potassium 4.6 (3.5-5.1) mmol/L Chloride 104 (98-107) mmol/L Carbon Dioxide 26 (21-32) mmol/L Anion Gap 6.0 (3-11) BUN 23 H (7-18) mg/dl Creatinine 1.20 (0.6-1.4) mg/dl Est Cr Clr Drug Dosing 98.0 ml/min Est GFR ( Amer) 73.1 ml/min Est GFR (Non-Af Amer) 63.1 ml/min BUN/Creatinine Ratio 18.8 (10-20) Glucose 122 H (70-99) mg/dl Lactate (0.4-2.0) mmol/L Calcium 8.9 (8.5-10.1) mg/dl Magnesium 1.9 (1.8-2.4) mg/dl Total Bilirubin 0.8 (0.2-1) mg/dl Direct Bilirubin 0.2 (0-0.2) mg/dl AST 21 (15-37) U/L ALT 30 (12-78) U/L Alkaline Phosphatase 107 (45-117) U/L Troponin I < 0.015 (0-0.045) ng/ml Total Protein 8.3 H (6.4-8.2) gm/dl Albumin 4.0 (3.4-5.0) gm/dl Lipase 203 (73-393) U/L Procalcitonin (0-0.5) ng/ml Urine Color Urine Appearance (Clear) Urine pH (4.5-7.5) Ur Specific [place] (1.000-1.030) Urine Protein (Negative) Urine Glucose (UA) (Negative) Urine Ketones (Negative) Urine Blood (Negative) Urine Nitrite (Negative) Urine Bilirubin (Negative) Urine Urobilinogen (Negative) Ur Leukocyte Esterase (Negative) Urine WBC (Auto) (0-5) /hpf Urine RBC (Auto) (0-4) /hpf U Hyaline Cast (Auto) (0-5) /lpf U Epithel Cells (Auto) (0-5) /lpf Urine Bacteria (Auto) (Negative) Lyme Disease IgG Ab Negative (Negative) Lyme Disease IgM Ab Negative (Negative) COVID-19 Eval Order SARS-CoV-2 (PCR) (Negative) 01/08/21 01/08/21 01/08/21 Range/Units 00:20 00:40 00:40 WBC (4.8-10.8) K/uL RBC (4.7-6.1) M/uL Hgb (14.0-18.0) g/dL Hct (42-52) % MCV (80-100) fL MCH (25-34) pg MCHC (32-36) g/dL RDW Std Deviation (36.4-46.3) fL RDW Coeff of Keri (11.5-14.5) % Plt Count (130-400) K/uL MPV (7.4-10.4) fL Immature Gran % (Auto) % Neut % (Auto) % Lymph % (Auto) % [place] % (Auto) % Eos % (Auto) % Baso % (Auto) % Neut # (Auto) (1.4-6.5) K/uL Lymph # (Auto) (1.2-3.4) K/uL [place] # (Auto) (0.11-0.59) K/uL Eos # (Auto) (0-0.5) K/uL Baso # (Auto) (0-0.2) K/uL Immature Gran # (Auto) (0.00-0.02) K/uL Sodium (136-145) mmol/L Potassium (3.5-5.1) mmol/L Chloride (98-107) mmol/L Carbon Dioxide (21-32) mmol/L Anion Gap (3-11) BUN (7-18) mg/dl Creatinine (0.6-1.4) mg/dl Est Cr Clr Drug Dosing ml/min Est GFR ( Amer) ml/min Est GFR (Non-Af Amer) ml/min BUN/Creatinine Ratio (10-20) Glucose (70-99) mg/dl Lactate (0.4-2.0) mmol/L Calcium (8.5-10.1) mg/dl Magnesium (1.8-2.4) mg/dl Total Bilirubin (0.2-1) mg/dl Direct Bilirubin (0-0.2) mg/dl AST (15-37) U/L ALT (12-78) U/L Alkaline Phosphatase (45-117) U/L Troponin I (0-0.045) ng/ml Total Protein (6.4-8.2) gm/dl Albumin (3.4-5.0) gm/dl Lipase (73-393) U/L Procalcitonin 1.41 H (0-0.5) ng/ml Urine Color Urine Appearance (Clear) Urine pH (4.5-7.5) Ur Specific [place] (1.000-1.030) Urine Protein (Negative) Urine Glucose (UA) (Negative) Urine Ketones (Negative) Urine Blood (Negative) Urine Nitrite (Negative) Urine Bilirubin (Negative) Urine Urobilinogen (Negative) Ur Leukocyte Esterase (Negative) Urine WBC (Auto) (0-5) /hpf Urine RBC (Auto) (0-4) /hpf U Hyaline Cast (Auto) (0-5) /lpf U Epithel Cells (Auto) (0-5) /lpf Urine Bacteria (Auto) (Negative) Lyme Disease IgG Ab (Negative) Lyme Disease IgM Ab (Negative) COVID-19 Eval Order Covid19 at [facility] SARS-CoV-2 (PCR) NEGATIVE (Negative) 01/08/21 01/08/21 Range/Units 00:50 03:25 WBC (4.8-10.8) K/uL RBC (4.7-6.1) M/uL Hgb (14.0-18.0) g/dL Hct (42-52) % MCV (80-100) fL MCH (25-34) pg MCHC (32-36) g/dL RDW Std Deviation (36.4-46.3) fL RDW Coeff of Keri (11.5-14.5) % Plt Count (130-400) K/uL MPV (7.4-10.4) fL Immature Gran % (Auto) % Neut % (Auto) % Lymph % (Auto) % [place] % (Auto) % Eos % (Auto) % Baso % (Auto) % Neut # (Auto) (1.4-6.5) K/uL Lymph # (Auto) (1.2-3.4) K/uL [place] # (Auto) (0.11-0.59) K/uL Eos # (Auto) (0-0.5) K/uL Baso # (Auto) (0-0.2) K/uL Immature Gran # (Auto) (0.00-0.02) K/uL Sodium (136-145) mmol/L Potassium (3.5-5.1) mmol/L Chloride (98-107) mmol/L Carbon Dioxide (21-32) mmol/L Anion Gap (3-11) BUN (7-18) mg/dl Creatinine (0.6-1.4) mg/dl Est Cr Clr Drug Dosing ml/min Est GFR ( Amer) ml/min Est GFR (Non-Af Amer) ml/min BUN/Creatinine Ratio (10-20) Glucose (70-99) mg/dl Lactate 1.6 (0.4-2.0) mmol/L Calcium (8.5-10.1) mg/dl Magnesium (1.8-2.4) mg/dl Total Bilirubin (0.2-1) mg/dl Direct Bilirubin (0-0.2) mg/dl AST (15-37) U/L ALT (12-78) U/L Alkaline Phosphatase (45-117) U/L Troponin I (0-0.045) ng/ml Total Protein (6.4-8.2) gm/dl Albumin (3.4-5.0) gm/dl Lipase (73-393) U/L Procalcitonin (0-0.5) ng/ml Urine Color Dark Yellow Urine Appearance Cloudy A (Clear) Urine pH 5.0 (4.5-7.5) Ur Specific [place] 1.027 (1.000-1.030) Urine Protein Negative (Negative) Urine Glucose (UA) Negative (Negative) Urine Ketones Trace H (Negative) Urine Blood Negative (Negative) Urine Nitrite Negative (Negative) Urine Bilirubin Negative (Negative) Urine Urobilinogen Negative (Negative) Ur Leukocyte Esterase Trace H (Negative) Urine WBC (Auto) 1-5 (0-5) /hpf Urine RBC (Auto) 0-4 (0-4) /hpf U Hyaline Cast (Auto) 0 (0-5) /lpf U Epithel Cells (Auto) 5-10 H (0-5) /lpf Urine Bacteria (Auto) Negative (Negative) Lyme Disease IgG Ab (Negative) Lyme Disease IgM Ab (Negative) COVID-19 Eval Order SARS-CoV-2 (PCR) (Negative) Administered Medications Acetaminophen (Acetaminophen 325 Mg Tab) 650 mg PO Q4H PRN PRN Reason: Pain or Fever Stop: 02/07/21 05:29 Last Admin: 01/08/21 20:22 Dose: 650 mg Documented by: [id number] Admin: 01/08/21 11:50 Dose: 650 mg Documented by: [id number] Admin: 01/08/21 06:22 Dose: 650 mg Documented by: [id number] Buspirone HCl (Buspirone 5 Mg Tab) 20 mg PO BID JEAN PIERRE Stop: 02/07/21 08:59 Last Admin: 01/08/21 20:09 Dose: 20 mg Documented by: [id number] Admin: 01/08/21 07:59 Dose: 20 mg Documented by: [id number] Escitalopram Oxalate (Escitalopram Oxalate 10 Mg Tab) 10 mg PO HS JEAN PIERRE Stop: 02/07/21 20:59 Last Admin: 01/08/21 20:09 Dose: 10 mg Documented by: [id number] Escitalopram Oxalate (Escitalopram Oxalate 20 Mg Tab) 20 mg PO JEAN PIERRE Stop: 02/07/21 20:59 Last Admin: 01/08/21 20:08 Dose: 20 mg Documented by: [id number] Fexofenadine HCl (Fexofenadine Hcl 180 Mg Tab) 180 mg PO DAILY JEAN PIERRE Stop: 02/07/21 08:59 Last Admin: 01/08/21 08:00 Dose: 180 mg Documented by: [id number] Gabapentin (Gabapentin 600 Mg Tab) 600 mg PO BID JEAN PIERRE Stop: 02/07/21 08:59 Last Admin: 01/08/21 20:08 Dose: 600 mg Documented by: [id number] Admin: 01/08/21 08:00 Dose: 600 mg Documented by: [id number] Heparin Sodium (Porcine) (Heparin Sod 5,000 Unit/0.5 Ml Vial) 7,500 units SQ Q8 JEAN PIERRE Stop: 02/07/21 05:59 Last Admin: 01/08/21 20:12 Dose: 7,500 units Documented by: [id number] Admin: 01/08/21 15:21 Dose: 7,500 units Documented by: [id number] Admin: 01/08/21 07:54 Dose: 7,500 units Documented by: [id number] Piperacillin Sod/Tazobactam (Sod 4.5 gm/ Dextrose) 120 mls @ 30 mls/hr IV Q8H JEAN PIERRE; Protocol Stop: 01/10/21 07:59 Last Infusion: 01/09/21 04:05 Dose: 0 mls/hr Documented by: [id number] Admin: 01/09/21 00:10 Dose: 30 mls/hr Documented by: [id number] Infusion: 01/08/21 20:51 Dose: 0 mls/hr Documented by: [id number] Admin: 01/08/21 15:21 Dose: 30 mls/hr Documented by: [id number] Infusion: 01/08/21 12:11 Dose: 0 mls/hr Documented by: [id number] Admin: 01/08/21 07:55 Dose: 30 mls/hr Documented by: [id number] Doxycycline Hyclate 100 mg/ (Dextrose) 110 mls @ 50 mls/hr IV Q12H [facility] Stop: 01/15/21 09:29 Last Infusion: 01/09/21 01:43 Dose: 0 mls/hr Documented by: [id number] Admin: 01/08/21 20:22 Dose: 100 mls/hr Documented by: [id number] Infusion: 01/08/21 13:55 Dose: 0 mls/hr Documented by: [id number] Admin: 01/08/21 11:39 Dose: 50 mls/hr Documented by: [id number] Vancomycin HCl 2,000 mg/ (Sodium Chloride) 540 mls @ 200 mls/hr IV Q12H JEAN PIERRE Stop: 01/15/21 11:59 Last Infusion: 01/09/21 04:04 Dose: 0 mls/hr Documented by: [id number] Admin: 01/09/21 00:10 Dose: 200 mls/hr Documented by: [id number] Infusion: 01/08/21 14:30 Dose: 0 mls/hr Documented by: [id number] Admin: 01/08/21 11:47 Dose: 200 mls/hr Documented by: [id number] Miconazole Nitrate (Miconazole Nitrate Powder 43 Gm) 1 appln EXT DAILY JEAN PIERRE Stop: 02/07/21 08:59 Last Admin: 01/08/21 08:53 Dose: 1 appln Documented by: [id number] Miscellaneous (Tadalafil~Order Awaiting Action) 1 ea N/A QS JEAN PIERRE Stop: 02/07/21 06:14 Last Admin: 01/09/21 01:43 Dose: Not Given Documented by: [id number] Admin: 01/08/21 15:21 Dose: Not Given Documented by: [id number] Admin: 01/08/21 07:55 Dose: Not Given Documented by: [id number] Admin: 01/08/21 06:12 Dose: Not Given Documented by: [id number] Multivitamins/Folic Acid/Vitamin C (Multivitamin Chewable Tab) 1 tab PO DAILY JEAN PIERRE Stop: 02/07/21 08:59 Last Admin: 01/08/21 08:01 Dose: 1 tab Documented by: [id number] Pregabalin (Pregabalin 150 Mg Cap) 300 mg PO BID JEAN PIERRE Stop: 02/07/21 08:59 Last Admin: 01/08/21 20:22 Dose: 300 mg Documented by: [id number] Admin: 01/08/21 08:06 Dose: 300 mg Documented by: [id number] Discontinued Medications Fentanyl Citrate (Fentanyl Citrate 100 Mcg/2 Ml Vial) 50 mcg IV NOW STA Stop: 01/08/21 00:16 Last Admin: 01/08/21 00:36 Dose: 50 mcg Documented by: [id number] Fentanyl Citrate (Fentanyl Citrate 100 Mcg/2 Ml Vial) 75 mcg IV NOW STA Stop: 01/08/21 01:50 Last Admin: 01/08/21 02:04 Dose: 75 mcg Documented by: [id number] Sodium Chloride (Nss 1000ml) 1,000 mls @ 999 mls/hr IV .Q1H1M ONE Stop: 01/08/21 01:13 Last Infusion: 01/08/21 01:38 Dose: 0 mls/hr Documented by: [id number] Admin: 01/08/21 00:37 Dose: 999 mls/hr Documented by: [id number] Sodium Chloride (Nss 1000ml) 1,000 mls @ 999 mls/hr IV .Q1H1M ONE Stop: 01/08/21 01:13 Last Infusion: 01/08/21 01:39 Dose: 0 mls/hr Documented by: [id number] Admin: 01/08/21 00:38 Dose: 999 mls/hr Documented by: [id number] Sodium Chloride (Nss 1000ml) 1,000 mls @ 999 mls/hr IV .Q1H1M ONE Stop: 01/08/21 02:36 Last Infusion: 01/08/21 03:03 Dose: 0 mls/hr Documented by: [id number] Admin: 01/08/21 02:02 Dose: 999 mls/hr Documented by: [id number] Piperacillin Sod/Tazobactam Sod (Zosyn) 4.5 gm in 120 mls @ 240 mls/hr IV NOW ONE Stop: 01/08/21 02:06 Last Infusion: 01/08/21 02:35 Dose: 0 mls/hr Documented by: [id number] Admin: 01/08/21 02:02 Dose: 240 mls/hr Documented by: [id number] Vancomycin HCl 2,000 mg/ (Sodium Chloride) 540 mls @ 200 mls/hr IV NOW ONE Stop: 01/08/21 04:18 Last Infusion: 01/08/21 06:15 Dose: 0 mls/hr Documented by: [id number] Admin: 01/08/21 03:00 Dose: 200 mls/hr Documented by: [id number] Acetaminophen (Ofirmev) 1,000 mg in 100 mls @ 400 mls/hr IV NOW STA Stop: 01/08/21 02:31 Last Infusion: 01/08/21 02:51 Dose: 0 mls/hr Documented by: [id number] Admin: 01/08/21 02:36 Dose: 400 mls/hr Documented by: [id number] Sodium Chloride (Nss 1000ml) 1,000 mls @ 125 mls/hr IV .Q8H JEAN PIERRE Stop: 01/08/21 21:59 Last Infusion: 01/08/21 18:01 Dose: 0 mls/hr Documented by: [id number] Admin: 01/08/21 17:42 Dose: 125 mls/hr Documented by: [id number] Infusion: 01/08/21 17:42 Dose: 0 mls/hr Documented by: [id number] Admin: 01/08/21 06:12 Dose: 125 mls/hr Documented by: [id number] Discharge Plan Visit Data Chief Complaint: Illness Stated Complaint: CHILLS, COUGH, FEVER ED Provider: Taj Burns Discharge Problem: Sepsis, Acute hypotension Patient Disposition: Admitted As Inpatient Discharge Instructions Interventions: ED Discharge Assessment Last Done: 01/08/21 05:01 Discharge Problem: Sepsis Qualifiers: Sepsis type: sepsis due to unspecified organism Sepsis acute organ dysfunction status: without acute organ dysfunction Qualified Code(s): A41.9 - Sepsis, unspecified organism
[2021-01-08 00:38] LABS: Basophils # (auto) 0.01 K/uL (0-0.2); Basophils % (auto) 0.1 %; Eosinophils # (auto) 0.04 K/uL (0-0.5); Eosinophils % (auto) 0.4 %; Hematocrit (blood only) 43.5 % (42-52); Hemoglobin 14.8 g/dL (14.0-18.0); Immature Granulocytes # (auto) 0.02 K/uL (0.00-0.02); Immature Granulocytes % (auto) 0.2 %; Lymphocytes # (auto) 0.97 K/uL (1.2-3.4); Lymphocytes % (auto) 9.9 %; Mean Corpuscular Hemoglobin 32.2 pg (25-34); Mean Corpuscular Volume 94.6 fL (80-100); Mean Platelet Volume 10.8 fL (7.4-10.4); Monocytes # (auto) 0.47 K/uL (0.11-0.59); Monocytes % (auto) 4.8 %; Neutrophils # (auto) 8.27 K/uL (1.4-6.5); Neutrophils % (auto) 84.6 %; Platelet Count 187 K/uL (130-400); RDW Coefficient of Variation 14.3 % (11.5-14.5); RDW Standard Deviation 49.2 fL (36.4-46.3); White Blood Count 9.78 K/uL (4.8-10.8)
[2021-01-08 00:57] LABS: Alanine Aminotransferase 30 U/L (12-78); Aspartate Aminotransferase 21 U/L (15-37); BUN Creatinine Ratio 18.8 (10-20); Bilirubin Direct 0.2 mg/dl (0-0.2); Blood Urea Nitrogen 23 mg/dl (7-18); Calcium 8.9 mg/dl (8.5-10.1); Carbon Dioxide 26 mmol/L (21-32); Chloride 104 mmol/L (98-107); Est GFR (African American) 73.1 ml/min; Est GFR (Non-African American) 63.1 ml/min; Glucose 122 mg/dl (70-99); Lipase 203 U/L (73-393); Magnesium 1.9 mg/dl (1.8-2.4); Potassium 4.6 mmol/L (3.5-5.1); Sodium 135 mmol/L (136-145)
[2021-01-08 01:02] LABS: Alkaline Phosphatase 107 U/L (45-117); Bilirubin,Total 0.8 mg/dl (0.2-1); Total Protein 8.3 gm/dl (6.4-8.2); Troponin I < 0.015 ng/ml (0-0.045)
[2021-01-08] MEDS ORDERED: PIPERACILLIN/TAZOBACTAM 4.5 GM/120 ML BAG IV ONE (01:37)
[2021-01-08] MEDS ORDERED: PIPERACILL/TAZOBAC CONSULT ACTIVE PRN ×2 (01:37→05:30)
[2021-01-08] MEDS ORDERED: VANCOMYCIN CONSULT ACTIVE PRN ×2 (01:37→05:30)
[2021-01-08] MEDS ORDERED: VANCOMYCIN HCL 2,000 MG in SODIUM CHLORIDE 0.9% 500 ML IV ONE (01:37)
[2021-01-08 01:44] LABS: Lyme Ab IgG w/WB Rflx Negative (Negative); Lyme Ab IgM w/WB Rflx Negative (Negative)
[2021-01-08] MEDS ORDERED: ACETAMINOPHEN 1,000 MG/100 ML VIAL IV STA (02:17)
--- NOTE | 2021-01-08 03:40 | History & Physical Report ---
Date of Service January 08, 2021 Assessment & Plan (1) Sepsis associated hypotension: Plan: Sepsis/hypotension with systolic blood pressure to the low 90s-- Intermittent blood pressure drops in spite of 3 L normal saline in the ED Main differential for causes is that of pulmonary versus . His pulse ox is 96 to 97% on room air, making pulmonary unlikely. Patient has known history of issue with BPH, and reports he may not urinate for 24 hours. We will treat empirically for prostatitis causing sepsis with vancomycin IV and Zosyn IV per pharmacokinetic monitoring Follow urine culture and sensitivities Continue IV fluids (2) Benign localized prostatic hyperplasia with lower urinary tract symptoms (LUTS): Plan: See above He does not report being on medication such as tamsulosin. If develops retention, would start tamsulosin (3) Primary hypogonadism in male: Plan: Received testosterone injections in the outpatient setting (4) Depression with anxiety: Plan: Continue Lexapro, gabapentin and buspirone (5) Gastric bypass status for obesity: Plan: Noted History of Present Illness Chief Complaint: The patient presents to the emergency department with complaint of generalized fatigue, fever for 3 hours, body aches, chills, generalized weakness, headache, nausea and malaise. Primary Care Provider: VIVIAN Hicks The patient is a 65-year-old male with a past medical history including biceps tendinitis on the left, left rotator cuff tear, primary hypogonadism in the male, status post gastric bypass, BPH with LUTS, diabetes mellitus type 2, depression with anxiety, dyslipidemia, GERD without esophagitis, morbid obesity, right knee G DJD, left bundle branch block, and meralgia paresthetica. Patient presents with acute onset of symptoms as noted above, and he reports and feeling of reports that he is unable to quit shaking since this began. He has had a chronically productive cough, and has a known issue with his prostate and follows with Dr. Manrique from urology. Allergies Allergy/AdvReac Type Severity Reaction Status Date / Time propoxyphene Allergy Intermediate Shakiness Verified 01/08/21 00:26 metformin AdvReac Mild Diarrhea Verified 01/08/21 00:26 NSAIDS (Non-Steroidal AdvReac Unknown Only PO Verified 01/08/21 00:26 Anti-Inflamma meds - Contraindicated, had Bariatric Surgery Home Medications Medication Instructions Recorded Confirmed Type buspirone 10 mg tablet 20 mg PO BID 05/16/18 01/08/21 History lorazepam 1 mg tablet (Ativan) 1 mg PO DAILY PRN 05/16/18 01/08/21 History escitalopram oxalate 10 mg tablet 10 mg PO HS 06/30/18 01/08/21 History escitalopram oxalate 20 mg tablet 20 mg PO HS 06/30/18 01/08/21 History gabapentin 600 mg tablet 600 mg PO BID 03/24/20 01/08/21 History sodium chloride 0.65 % nasal spray 1 spray INTRANASAL BID PRN 03/24/20 01/08/21 History aerosol (Saline Nasal Mist) cyanocobalamin (vitamin B-12) 1,000 mcg IM MONTHLY 06/21/20 01/08/21 History 1,000 mcg/mL injection solution fexofenadine 180 mg tablet 180 mg PO DAILY 06/21/20 01/08/21 History meclizine 25 mg tablet 25 mg PO TID PRN #30 tab 06/21/20 01/08/21 Rx ondansetron HCl 4 mg tablet 4 mg PO Q8H PRN 06/21/20 01/08/21 History pediatric multivit no.79-ferrous 1 tab PO DAILY 06/21/20 01/08/21 History fumarate 18 mg iron chewable tablet (Flintstones with Iron) safety needles 18 gauge x 1 1/2" #100 ea 08/14/20 Rx (BD SafetyGlide Needle) syringe with needle 3 mL 25 x 5/8" #50 ea 08/14/20 Rx (BD Eclipse Luer-Talia) testosterone cypionate 200 mg/mL 150 mg IM .weekly #10 ml 08/14/20 01/08/21 Rx intramuscular kit pregabalin 300 mg capsule 300 mg PO BID 30 Days #60 cap 10/28/20 01/08/21 Rx tadalafil 20 mg tablet 20 mg PO DAILY #30 tab 01/07/21 01/08/21 Rx Past Med/Surg History Medical History (Updated 01/08/21 @ 04:13 by Sage Woo MD) Anxiety Benign localized prostatic hyperplasia with lower urinary tract symptoms (LUTS) Bile duct abnormality INFLAMMATION Depression Diabetes mellitus, type 2 GERD (gastroesophageal reflux disease) Impingement syndrome, shoulder, left Meralgia paresthetica Migraine Surgical History History of colonoscopy History of cystoscopy History of esophagogastroduodenoscopy (EGD) History of gastric bypass History of nasal septoplasty History of tonsillectomy and adenoidectomy History of tooth extraction S/P robot-assisted surgical procedure Family History Mother Cerebral aneurysm Father Cardiac disorder Other No family history of adverse response to anesthesia Social History Smoking Status: Never smoker Second Hand Exposure: Yes (parents smoked); Hx Alcohol Use: Yes Alcohol type: beer, wine and hard liquor Hx Substance Use: No Preferred Language: Divehi Communication Ability: Effective 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 Beliefs That Will Affect Care: None Current Living Situation: Spouse and Family Current Living Situation Comment: Lives with and oldest daughter and daughter's boyfriend Feels Safe at Home: Yes Assistive Devices: CPAP and Glasses Review of Systems Review of Systems: The patient denies chest pain, palpitations, shortness of breath, dyspnea on exertion, cough, lower extremity swelling, sore throat, fevers, chills, sweats, vomiting, diarrhea , constipation, abdominal pain, pelvic pain, blood in urine or stool, dysuria, urinary frequency or urgency, memory loss, loss of consciousness, rash, abnormal bruising or bleeding, imbalance, focal weakness, numbness or tingling in arms or legs, generalized arthralgias or myalgias, back or neck pain, or night sweats. The review of systems is otherwise negative other than for that already noted above, and at least 10 systems have been reviewed. Physical Exam Physical Exam: The patient is awake, alert and oriented 3, well developed and well nourished, normocephalic and atraumatic, lying in bed and in no acute distress. HEENT--PERRL, EOMI, mucous membranes and oropharynx dry. Neck--supple. No JVD. No bruits. Thyroid normal, trachea midline, no adenopathy. Heart--normal S1 and S2. No murmurs, rubs or gallops. Lungs--clear bilaterally, no respiratory distress, no accessory muscle use. Abdomen--normal bowel sounds and soft. Nontender. Nondistended, no hernias or masses, no organomegaly. Extremities--no cyanosis or clubbing. No edema. There are good distal pulses b/l. Dermatologic--normal skin turgor, normal color, no abnormal lymph nodes, no rash. Neurologic--cranial nerves II through XII grossly intact. Rheumatologic--normal range of motion. Psychiatric--normal affect. Results & Data Results & Data ([facility]) Vital Signs (Past 12 Hours) Vital Signs Temp Pulse Pulse Resp BP BP Pulse Ox 01/08/21 03:00 99 H 18 97/38 L 96 01/08/21 02:30 103 H 18 120/42 L 94 01/08/21 02:10 102.9 F H 01/08/21 02:01 104 H 18 107/50 L 96 01/08/21 01:30 108 H 16 95/39 L 97 01/08/21 00:50 115 H 20 115/51 L 95 01/08/21 00:13 124 H 20 107/55 L 96 01/07/21 23:12 100.8 F H 94 H 18 112/60 96 Laboratory Results Laboratory Results WBC 9.78 K/uL (4.8-10.8) 01/08/21 00:20 RBC 4.60 M/uL (4.7-6.1) L 01/08/21 00:20 Hgb 14.8 g/dL (14.0-18.0) 01/08/21 00:20 Hct 43.5 % (42-52) 01/08/21 00:20 MCV 94.6 fL (80-100) 01/08/21 00:20 MCH 32.2 pg (25-34) 01/08/21 00:20 MCHC 34.0 g/dL (32-36) 01/08/21 00:20 RDW Std Deviation 49.2 fL (36.4-46.3) H 01/08/21 00:20 RDW Coeff of Keri 14.3 % (11.5-14.5) 01/08/21 00:20 Plt Count 187 K/uL (130-400) 01/08/21 00:20 MPV 10.8 fL (7.4-10.4) H 01/08/21 00:20 Immature Gran % (Auto) 0.2 % 01/08/21 00:20 Neut % (Auto) 84.6 % 01/08/21 00:20 Lymph % (Auto) 9.9 % 01/08/21 00:20 [place] % (Auto) 4.8 % 01/08/21 00:20 Eos % (Auto) 0.4 % 01/08/21 00:20 Baso % (Auto) 0.1 % 01/08/21 00:20 Neut # (Auto) 8.27 K/uL (1.4-6.5) H 01/08/21 00:20 Lymph # (Auto) 0.97 K/uL (1.2-3.4) L 01/08/21 00:20 [place] # (Auto) 0.47 K/uL (0.11-0.59) 01/08/21 00:20 Eos # (Auto) 0.04 K/uL (0-0.5) 01/08/21 00:20 Baso # (Auto) 0.01 K/uL (0-0.2) 01/08/21 00:20 Immature Gran # (Auto) 0.02 K/uL (0.00-0.02) 01/08/21 00:20 Sodium 135 mmol/L (136-145) L 01/08/21 00:20 Potassium 4.6 mmol/L (3.5-5.1) 01/08/21 00:20 Chloride 104 mmol/L (98-107) 01/08/21 00:20 Carbon Dioxide 26 mmol/L (21-32) 01/08/21 00:20 Anion Gap 6.0 (3-11) 01/08/21 00:20 BUN 23 mg/dl (7-18) H 01/08/21 00:20 Creatinine 1.20 mg/dl (0.6-1.4) 01/08/21 00:20 Est Cr Clr Drug Dosing 98.0 ml/min 01/08/21 00:20 Est GFR ( Amer) 73.1 ml/min 01/08/21 00:20 Est GFR (Non-Af Amer) 63.1 ml/min 01/08/21 00:20 BUN/Creatinine Ratio 18.8 (10-20) 01/08/21 00:20 Glucose 122 mg/dl (70-99) H 01/08/21 00:20 Lactate 1.6 mmol/L (0.4-2.0) 01/08/21 00:50 Calcium 8.9 mg/dl (8.5-10.1) 01/08/21 00:20 Magnesium 1.9 mg/dl (1.8-2.4) 01/08/21 00:20 Total Bilirubin 0.8 mg/dl (0.2-1) 01/08/21 00:20 Direct Bilirubin 0.2 mg/dl (0-0.2) 01/08/21 00:20 AST 21 U/L (15-37) 01/08/21 00:20 ALT 30 U/L (12-78) 01/08/21 00:20 Alkaline Phosphatase 107 U/L (45-117) 01/08/21 00:20 Troponin I < 0.015 ng/ml (0-0.045) 01/08/21 00:20 Total Protein 8.3 gm/dl (6.4-8.2) H 01/08/21 00:20 Albumin 4.0 gm/dl (3.4-5.0) 01/08/21 00:20 Lipase 203 U/L (73-393) 01/08/21 00:20 Procalcitonin 1.41 ng/ml (0-0.5) H 01/08/21 00:20 Urine Color Dark Yellow 01/08/21 03:25 Urine Appearance Cloudy (Clear) A 01/08/21 03:25 Urine pH 5.0 (4.5-7.5) 01/08/21 03:25 Ur Specific [place] 1.027 (1.000-1.030) 01/08/21 03:25 Urine Protein Negative (Negative) 01/08/21 03:25 Urine Glucose (UA) Negative (Negative) 01/08/21 03:25 Urine Ketones Trace (Negative) H 01/08/21 03:25 Urine Blood Negative (Negative) 01/08/21 03:25 Urine Nitrite Negative (Negative) 01/08/21 03:25 Urine Bilirubin Negative (Negative) 01/08/21 03:25 Urine Urobilinogen Negative (Negative) 01/08/21 03:25 Ur Leukocyte Esterase Trace (Negative) H 01/08/21 03:25 Urine WBC (Auto) 1-5 /hpf (0-5) 01/08/21 03:25 Urine RBC (Auto) 0-4 /hpf (0-4) 01/08/21 03:25 U Hyaline Cast (Auto) 0 /lpf (0-5) 01/08/21 03:25 U Epithel Cells (Auto) 5-10 /lpf (0-5) H 01/08/21 03:25 Urine Bacteria (Auto) Negative (Negative) 01/08/21 03:25 Lyme Disease IgG Ab Negative (Negative) 01/08/21 00:20 Lyme Disease IgM Ab Negative (Negative) 01/08/21 00:20 COVID-19 Eval Order Covid19 at [facility] 01/08/21 00:40 SARS-CoV-2 (PCR) NEGATIVE (Negative) 01/08/21 00:40 Code Status & VTE Plan VTE Prophylaxis Plan VTE Prophylaxis will be ordered: Yes PG Care Time/CCT Total # of Minutes Spent Total Time Spent with Patient: Total time spent is greater than 50% in coordination of care (as documented) at patient's floor/unit and/or counseling patient: Coding Level of Care Code 47121 Initial Inpt Care Lvl 3 Diagnoses Sepsis associated hypotension A41.9; I95.9 Primary hypogonadism in male E29.1 Gastric bypass status for obesity Z98.84 Benign localized prostatic hyperplasia with lower urinary tract symptoms (LUTS) N40.1 Depression with anxiety F41.8
[2021-01-08 03:59] LABS: Appearance Urine Cloudy (Clear); Bacteria Urine Automated Negative (Negative); Bilirubin Urine Negative (Negative); Blood Urine Negative (Negative); Cast Urine Automated 0 /lpf (0-5); Color Urine Dark Yellow; Glucose Urine UA Negative (Negative); Ketones Urine Trace (Negative); Leukocyte Esterase Urine Trace (Negative); Nitrite Urine Negative (Negative); Protein Urine Negative (Negative); RBC Urine Automated 0-4 /hpf (0-4); Specific Gravity Urine 1.027 (1.000-1.030); Urobilinogen Urine Negative (Negative)
[2021-01-08] MEDS ORDERED: ONDANSETRON INJ 2 MG/ML 2 ML VIAL IV PRN (05:30)
[2021-01-08] MEDS ORDERED: VANCOMYCIN HCL 2,000 MG in SODIUM CHLORIDE 0.9% 500 ML IV SCH ×2 (05:30→14:00)
[2021-01-08] MEDS: TADALAFIL~ORDER AWAITING ACTION SCH ×3 (06:12→15:21)
[2021-01-08] MEDS: SODIUM CHLORIDE 0.9% 1000ML 1,000 ML IV SCH ×2 (06:12→17:42)
[2021-01-08] MEDS ORDERED: ONDANSETRON 4 MG OD TAB PO PRN (06:13)
[2021-01-08] MEDS ORDERED: MECLIZINE HCL 25 MG TAB PO PRN (06:15)
[2021-01-08] MEDS ORDERED: LORazepam 1 MG TAB PO PRN (06:15)
[2021-01-08] MEDS: ACETAMINOPHEN 325 MG TAB PO PRN ×3 (06:22→20:22)
[2021-01-08] MEDS: HEPARIN SOD 5,000 UNIT/0.5 ML VIAL SQ SCH ×3 (07:54→20:12)
--- NOTE | 2021-01-08 07:54 | XRay Report ---
XR chest 1V portable HISTORY: 65 years-old Male sepsis acute sepsis COMPARISON: 05/31/2019 TECHNIQUE: Portable AP view the chest FINDINGS: Cardiac silhouette is enlarged. Pulmonary vascular congestion with mild interstitial coarsening. No p neumothorax, large pleural effusion or lobar airspace consolidation. Bones appear grossly intact. IMPRESSION: Cardiomegaly with pulmonary vascular congestion and interstitial coarsening suggestive of pulmonary edema versus interstitial pneumonitis. ACT 112: Negative or not required by law. The above report was generated using voice recognition software. It may contain grammatical, syntax o r spelling errors. Electronically signed by: Huan Kolb M.D. 01/08/2021 7:52 AM
[2021-01-08] MEDS: PIPERACILLIN/TAZOBACTAM 4.5 GM in DEXTROSE 5% 100 ML IV SCH ×2 (07:55→15:21)
[2021-01-08] MEDS: busPIRone 5 MG TAB PO SCH ×2 (07:59→20:09)
[2021-01-08] MEDS: FEXOFENADINE HCL 180 MG TAB PO SCH (08:00)
[2021-01-08] MEDS: GABAPENTIN 600 MG TAB PO SCH ×2 (08:00→20:08)
[2021-01-08] MEDS: MULTIVITAMIN CHEWABLE TAB PO SCH (08:01)
[2021-01-08] MEDS: PREGABALIN 150 MG CAP PO SCH ×2 (08:06→20:22)
[2021-01-08] MEDS: MICONAZOLE NITRATE POWDER 43 GM EXT SCH (08:53)
--- NOTE | 2021-01-08 08:56 | Electrocardiogram Report ---
Test Reason : Blood Pressure : / mmHG Vent. Rate : 121 BPM Atrial Rate : 121 BPM P-R Int : 174 ms QRS Dur : 080 ms QT Int : 294 ms P-R-T Axes : 064 074 068 degrees QTc Int : 417 ms Sinus tachycardia Otherwise normal ECG When compared with ECG of 21-JUN-2020 19:42, Vent. rate has increased BY 57 BPM Confirmed by Scar Ybarra ([id number]) on 01/08/2021 8:55:44 AM Referred By: REFERRED SELF Confirmed By:Scar Ybarra
--- NOTE | 2021-01-08 10:23 | Pharmacy Report ---
Pharmacy Abx Dose Short Note - Date of Service January 08, 2021 - Assessment & Plan Assessment 65 year old M admitted with sepsis concern/ hypotensive on arrival. Started on vancomycin/zosyn for concerns for prostatitis. Doxycycline added this AM for pulmonary source by provider. Blood cultures x 2 pending. MRSA nasal swab ordered Plan Vancomycin * Received vancomycin 2000 mg x 1 (~14 mg/kg) this AM) * Plan to start maintenance dosing of 2000 mg iv q 12 hrs (~14 mg/kg) - Patient with increased risk for accumulation with vancomycin therefore opted to just start maintenance dose, rather then give more vancomycin to complete full loading dose. Will plan to start maintenance dose slightly sooner than 12 hrs after previous dose * Estimated kinetics: t 1/2~8 hrs, ke~0.086, CrCl ~98 mg/dL Zosyn * 4.5 mg iv q 8 hr - appropriate for CrCl >20 Pharmacy will continue to follow and will adjust dose/frequency as necessary. Thank you.
[2021-01-08] MEDS: DOXYCYCLINE HYCLATE 100 MG in DEXTROSE 5% 100 ML IV SCH ×2 (11:39→20:22)
[2021-01-08] MEDS: VANCOMYCIN HCL 2,000 MG in SODIUM CHLORIDE 0.9% 500 ML IV SCH (11:47)
--- NOTE | 2021-01-08 20:07 | Hospitalist Progress Note ---
Date of Service January 08, 2021 Assessment & Plan (1) Sepsis associated hypotension: Plan: 2nd GPC bacteremia as below s/p fluid resuscitation in ER now with basal IV fluids BPs low-normal but acceptable with stable creatinine and acceptable UOP cont IV antibiotics (2) Septicemia: Plan: 2nd to GPC - in chains 4/4 bottles + continue current IV antibiotics order echo to exclude SBE repeat blood cx's x 2 sets in AM source? urine? follow culture, and likely to need GARCÍA to r/o prostatitis lung? repeat cxr in am other? await identification doubt the sinuses as source despite his discomfort (no mastoiditis on exam, etc) (3) Benign localized prostatic hyperplasia with lower urinary tract symptoms (LUTS): Plan: if any urinary retention then straight cath needs GARCÍA To r/o prostatitis during the stay if the urinary tract is deemed the source of his bacteremia (4) Primary hypogonadism in male: Plan: Receives testosterone injections in the outpatient setting (5) Depression with anxiety: Plan: Continue Lexapro, gabapentin and buspirone (6) Gastric bypass status for obesity: Plan: Noted (7) Abnormal CXR: Plan: ?pneumonia? but no symptoms of pneumonia COVID neg repeat 2-view cxr in am to see if any developing pneumonia (8) Dyslipidemia: (9) GERD without esophagitis: (10) Morbid obesity: Plan: BMI 38.9 (11) Obstructive sleep apnea: Plan: heparin 7500 units TID for DVT proph will need PT, OT while here Admission and Anticipated Discharge Date Admission Date: January 08, 2021 Subjective feeling better than yesterday although still having low-grade fevers main complaint is sinus pressure but no nasal drainage/discharge no cough no dyspnea no abd pain/N/V didn't have urinary symptoms at home fully vaccinated against COVID-19 no rashes or ulcers no sick contacts Review of Systems Review of Systems: gen - weakness present; chills resolved (severe yesterday) cardio - no pleuritic pain pulm - no cough, no dyspnea gastro - no nausea/emesis - no dysuria Physical Exam Physical Exam: gen - NAD, nontoxic appearing, pleasant mouth - MMM head - mildly tender over frontal & maxillary sinuses neck - no JVD heart - RRR, s1 s2 lungs - CTA b/l except mild rales right base abd - soft NT ND BS+ ext - no edema skin - no open sores or lesions; no rash Results & Data Results & Data ([facility]) Vital Signs (Past 12 Hours) Vital Signs Temp Pulse Pulse Resp BP Pulse Ox 01/08/21 19:20 39.4 C H 92 H 20 101/52 L 97 01/08/21 16:58 80 01/08/21 15:27 36.7 C 74 18 99/62 L 98 01/08/21 11:08 37.5 C 81 18 101/55 L 98 Laboratory Results Laboratory Results - last 24 hr 01/08/21 01/08/21 01/08/21 00:20 00:20 00:20 WBC 9.78 RBC 4.60 L Hgb 14.8 Hct 43.5 MCV 94.6 MCH 32.2 MCHC 34.0 RDW Std Deviation 49.2 H RDW Coeff of Keri 14.3 Plt Count 187 MPV 10.8 H Immature Gran % (Auto) 0.2 Neut % (Auto) 84.6 Lymph % (Auto) 9.9 [place] % (Auto) 4.8 Eos % (Auto) 0.4 Baso % (Auto) 0.1 Neut # (Auto) 8.27 H Lymph # (Auto) 0.97 L [place] # (Auto) 0.47 Eos # (Auto) 0.04 Baso # (Auto) 0.01 Immature Gran # (Auto) 0.02 Sodium 135 L Potassium 4.6 Chloride 104 Carbon Dioxide 26 Anion Gap 6.0 BUN 23 H Creatinine 1.20 Est Cr Clr Drug Dosing 98.0 Est GFR ( Amer) 73.1 Est GFR (Non-Af Amer) 63.1 BUN/Creatinine Ratio 18.8 Glucose 122 H POC Glucose Lactate Calcium 8.9 Magnesium 1.9 Total Bilirubin 0.8 Direct Bilirubin 0.2 AST 21 ALT 30 Alkaline Phosphatase 107 Troponin I < 0.015 Total Protein 8.3 H Albumin 4.0 Lipase 203 Procalcitonin Urine Color Urine Appearance Urine pH Ur Specific [place] Urine Protein Urine Glucose (UA) Urine Ketones Urine Blood Urine Nitrite Urine Bilirubin Urine Urobilinogen Ur Leukocyte Esterase Urine WBC (Auto) Urine RBC (Auto) U Hyaline Cast (Auto) U Epithel Cells (Auto) Urine Bacteria (Auto) Nasal Screen MRSA (PCR) Lyme Disease IgG Ab Negative Lyme Disease IgM Ab Negative COVID-19 Eval Order SARS-CoV-2 (PCR) 01/08/21 01/08/21 01/08/21 00:20 00:40 00:40 WBC RBC Hgb Hct MCV MCH MCHC RDW Std Deviation RDW Coeff of Keri Plt Count MPV Immature Gran % (Auto) Neut % (Auto) Lymph % (Auto) [place] % (Auto) Eos % (Auto) Baso % (Auto) Neut # (Auto) Lymph # (Auto) [place] # (Auto) Eos # (Auto) Baso # (Auto) Immature Gran # (Auto) Sodium Potassium Chloride Carbon Dioxide Anion Gap BUN Creatinine Est Cr Clr Drug Dosing Est GFR ( Amer) Est GFR (Non-Af Amer) BUN/Creatinine Ratio Glucose POC Glucose Lactate Calcium Magnesium Total Bilirubin Direct Bilirubin AST ALT Alkaline Phosphatase Troponin I Total Protein Albumin Lipase Procalcitonin 1.41 H Urine Color Urine Appearance Urine pH Ur Specific [place] Urine Protein Urine Glucose (UA) Urine Ketones Urine Blood Urine Nitrite Urine Bilirubin Urine Urobilinogen Ur Leukocyte Esterase Urine WBC (Auto) Urine RBC (Auto) U Hyaline Cast (Auto) U Epithel Cells (Auto) Urine Bacteria (Auto) Nasal Screen MRSA (PCR) Lyme Disease IgG Ab Lyme Disease IgM Ab COVID-19 Eval Order Covid19 at [facility] SARS-CoV-2 (PCR) NEGATIVE 01/08/21 01/08/21 01/08/21 00:50 03:25 07:25 WBC RBC Hgb Hct MCV MCH MCHC RDW Std Deviation RDW Coeff of Keri Plt Count MPV Immature Gran % (Auto) Neut % (Auto) Lymph % (Auto) [place] % (Auto) Eos % (Auto) Baso % (Auto) Neut # (Auto) Lymph # (Auto) [place] # (Auto) Eos # (Auto) Baso # (Auto) Immature Gran # (Auto) Sodium Potassium Chloride Carbon Dioxide Anion Gap BUN Creatinine Est Cr Clr Drug Dosing Est GFR ( Amer) Est GFR (Non-Af Amer) BUN/Creatinine Ratio Glucose POC Glucose 145 H Lactate 1.6 Calcium Magnesium Total Bilirubin Direct Bilirubin AST ALT Alkaline Phosphatase Troponin I Total Protein Albumin Lipase Procalcitonin Urine Color Dark Yellow Urine Appearance Cloudy A Urine pH 5.0 Ur Specific [place] 1.027 Urine Protein Negative Urine Glucose (UA) Negative Urine Ketones Trace H Urine Blood Negative Urine Nitrite Negative Urine Bilirubin Negative Urine Urobilinogen Negative Ur Leukocyte Esterase Trace H Urine WBC (Auto) 1-5 Urine RBC (Auto) 0-4 U Hyaline Cast (Auto) 0 U Epithel Cells (Auto) 5-10 H Urine Bacteria (Auto) Negative Nasal Screen MRSA (PCR) Lyme Disease IgG Ab Lyme Disease IgM Ab COVID-19 Eval Order SARS-CoV-2 (PCR) 01/08/21 01/08/21 01/08/21 11:09 12:15 16:35 WBC RBC Hgb Hct MCV MCH MCHC RDW Std Deviation RDW Coeff of Keri Plt Count MPV Immature Gran % (Auto) Neut % (Auto) Lymph % (Auto) [place] % (Auto) Eos % (Auto) Baso % (Auto) Neut # (Auto) Lymph # (Auto) [place] # (Auto) Eos # (Auto) Baso # (Auto) Immature Gran # (Auto) Sodium Potassium Chloride Carbon Dioxide Anion Gap BUN Creatinine Est Cr Clr Drug Dosing Est GFR ( Amer) Est GFR (Non-Af Amer) BUN/Creatinine Ratio Glucose POC Glucose 134 H 104 H Lactate Calcium Magnesium Total Bilirubin Direct Bilirubin AST ALT Alkaline Phosphatase Troponin I Total Protein Albumin Lipase Procalcitonin Urine Color Urine Appearance Urine pH Ur Specific [place] Urine Protein Urine Glucose (UA) Urine Ketones Urine Blood Urine Nitrite Urine Bilirubin Urine Urobilinogen Ur Leukocyte Esterase Urine WBC (Auto) Urine RBC (Auto) U Hyaline Cast (Auto) U Epithel Cells (Auto) Urine Bacteria (Auto) Nasal Screen MRSA (PCR) Negative Lyme Disease IgG Ab Lyme Disease IgM Ab COVID-19 Eval Order SARS-CoV-2 (PCR) PG Care Time/CCT Total # of Minutes Spent Total Time Spent with Patient: Total time spent is greater than 50% in coordination of care (as documented) at patient's floor/unit and/or counseling patient: Coding Level of Care Code 73718 Subseq Hosp Care Lvl 3 Diagnoses Sepsis associated hypotension A41.9; I95.9 Benign localized prostatic hyperplasia with lower urinary tract symptoms (LUTS) N40.1 Primary hypogonadism in male E29.1 Depression with anxiety F41.8 Gastric bypass status for obesity Z98.84 Septicemia A41.9 Abnormal CXR R93.89 Dyslipidemia E78.5 GERD without esophagitis K21.9 Morbid obesity E66.01 Obstructive sleep apnea G47.33
[2021-01-08] MEDS: ESCITALOPRAM OXALATE 20 MG TAB PO SCH (20:08)
[2021-01-08] MEDS: ESCITALOPRAM OXALATE 10 MG TAB PO SCH (20:09)
[2021-01-09] MEDS: PIPERACILLIN/TAZOBACTAM 4.5 GM in DEXTROSE 5% 100 ML IV SCH ×4 (00:10→23:25)
[2021-01-09] MEDS: VANCOMYCIN HCL 2,000 MG in SODIUM CHLORIDE 0.9% 500 ML IV SCH ×2 (00:10→17:08)
[2021-01-09] MEDS: TADALAFIL~ORDER AWAITING ACTION SCH ×3 (01:43→16:20)
[2021-01-09] MEDS: HEPARIN SOD 5,000 UNIT/0.5 ML VIAL SQ SCH ×3 (04:54→21:24)
[2021-01-09 06:47] LABS: Calcium 8.1 mg/dl (8.5-10.1); Creatinine Clr Calc Pharmacy 108.1 ml/min; Est GFR (African American) 84.9 ml/min; Est GFR (Non-African American) 73.3 ml/min; Potassium 3.8 mmol/L (3.5-5.1)
[2021-01-09] MEDS: GABAPENTIN 600 MG TAB PO SCH ×2 (08:18→21:23)
[2021-01-09] MEDS: FEXOFENADINE HCL 180 MG TAB PO SCH (08:18)
[2021-01-09] MEDS: busPIRone 5 MG TAB PO SCH ×2 (08:18→21:23)
--- NOTE | 2021-01-09 08:29 | XRay Report ---
XR chest 2V PA/lateral CLINICAL HISTORY: ?pneumonia on prior cxr COMPARISON STUDY: January 08, 2021 FINDINGS: No pneumothorax. No pleural effusion. Small atelectasis is seen at the left base. Mild interval improvement of diffuse reticular nodular op acities throughout bilateral lungs. Cardiomediastinal silhouette is within upper limits of normal. Aorta is calcified. Mild pulmonary vascular congestion is seen. Bilateral gilles are prominent.. Osseous structures: unremarkable IMPRESSION: 1. Mild atelectasis at the left base. 2. Interval improvement of diffuse reticular nodular opacities in presence of pulmonary vascular con gestion and slightly prominent cardiomediastinal silhouette might represent improvement of pulmonary edema. 3. Atherosclerosis. ACT 112: Negative or not required by law. The above report was generated using voice recognition software. It may contain grammatical, syntax o r spelling errors. Electronically signed by: Myranda Gautam DO 01/09/2021 8:28 AM
[2021-01-09] MEDS: PREGABALIN 150 MG CAP PO SCH ×2 (08:39→21:24)
[2021-01-09] MEDS: MULTIVITAMIN CHEWABLE TAB PO SCH (08:40)
[2021-01-09] MEDS: DOXYCYCLINE HYCLATE 100 MG in DEXTROSE 5% 100 ML IV SCH ×2 (08:41→21:23)
--- NOTE | 2021-01-09 09:22 | XCELERA ---
[id number] \\[id number]
[2021-01-09] MEDS: MICONAZOLE NITRATE POWDER 43 GM EXT SCH (09:52)
[2021-01-09] MEDS ORDERED: VANCOMYCIN TROUGH ONE ×2 (11:30→13:30)
[2021-01-09] MEDS: VANCOMYCIN HCL 1,750 MG in SODIUM CHLORIDE 0.9% 500 ML IV SCH (13:57)
--- NOTE | 2021-01-09 14:38 | Pharmacy Report ---
Pharmacy Vanc AUC Short Note - Date of Service January 09, 2021 - Assessment & Plan Assessment 65 year old M receiving vancomycin, Zosyn, and doxycycline for treatment of sepsis secondary to unknown source . Pertinent microbiologic data includes: Blood cultures from 01/08 growing group B beta strep (awaiting sensitivities). Repeats ordered and pending. Group B beta strep has been 100% sensitive to penicillins according to [facility] antibiogram. However, patient is continuing to spike fevers so hesitant to suggest de-escalation at this time. Day # 2 of antimicrobial therapy. Plan Vancomycin * AUC/JOLLY is the preferred PK/PD target for vancomycin * AUC guided dosing is effective and associated with decreased risk of nephrotoxicity compared to traditional trough targets * Trough level of 14.5 mcg/mL is prior to steady-state - will empirically reduce dose slightly in patient with elevated BMI due to increased likelihood of accumulation * Change to 1750 mg IV every 12 hours * New regimen predicted to achieve target AUC/JOLLY of 400-600 mg/L.hr and may be associated with a 19 % risk of nephrotoxicity Zosyn * Continue 4.5 g IV q8h - appropriate based on BMI and renal function Doxycycline * Continue 100 mg IV q12h Pharmacy will continue to follow and will adjust dose/frequency as necessary. Thank you.
--- NOTE | 2021-01-09 20:28 | Hospitalist Progress Note ---
Date of Service January 09, 2021 Assessment & Plan (1) Sepsis: Plan: Septicemia with gram-positive cocci in chains. 4 out of 4 bottles were positive. Day #3 with doxycycline, Zosyn, vancomycin Repeat cultures obtained this morning and currently are pending Abnormal chest x-ray but does not look like pneumonia. Repeat chest x-ray today with interval improvement. Uncertain etiology/source Procalcitonin 1.41 T-max 39.4 yesterday Continue to monitor on telemetry (2) Acute hypotension: Plan: Secondary to sepsis This is now improved. Generally SBP has been above 100 throughout the day Continue treatment for underlying sepsis (3) Benign localized prostatic hyperplasia with lower urinary tract symptoms (LUTS): Plan: Not on an alpha-reyes at home Follow strict I's and O's (4) Primary hypogonadism in male: Plan: Continue testosterone replacement (5) Depression with anxiety: Plan: No lability to mood today Continue buspirone, escitalopram (6) Gastric bypass status for obesity: Plan: Bypass several years ago Patient has put on significant amounts of weight Anxious to get home to begin protein replacement strategy for further weight loss Continue to manage outpatient (7) Abnormal CXR: Plan: Infectious etiology No sputum collection Repeat chest x-ray today shows interval improvement in opacification (8) Obstructive sleep apnea: Plan: Patient was CPAP at home at 13 cm H2O Continue CPAP while inpatient (9) Diabetes mellitus, type 2: Plan: Hemoglobin A1c in August 2020 was 6.3% Diet controlled No insulin or oral meds at home Random glucose 114 (10) GERD without esophagitis: Plan: Controlled. Not on an H2 reyes or PPI at home No complaints of epigastric pain here. (11) Morbid obesity: Plan: Status post gastric bypass in the past BMI 38.9 kg/m Outpatient management (12) DVT prophylaxis: Plan: Heparin 7500 units every 8 hours Please refer to Dr. Escobedo's addendum for further recommendations and corrections Admission and Anticipated Discharge Date Admission Date: January 08, 2021 Subjective Attending: Dr. Escobedo Patient seen in room. In bed and feeling fatiqued today. No SOB. Denies fever or sweats. Positive for some chills. No rigors. No n/v/d. Tolerating diet. No new complaints Review of Systems Review of Systems: All systems reviewed & are unremarkable except as noted in Subjective Physical Exam Physical Exam: GENERAL : No acute distress. In bed resting. Easily awakens EYES: No icterus, gaze conjugate NOSE: No evidence of epistaxis MOUTH: No lesions or candidiasis. Mucosa moist NECK: Supple LUNGS: CTA B/L, no wheezes, rales or rhonchi HEART: Regular, rate controlled ABDOMEN: Soft, NT, ND, BS Present EXTREMITIES: No LE edema, pedal pulses intact and equal bilaterally NEURO: A&OX3 Results & Data Results & Data ([facility]) Vital Signs (Past 12 Hours) Vital Signs Temp Pulse Pulse Resp BP Pulse Ox 01/09/21 19:17 37.3 C 75 20 95/48 L 97 01/09/21 16:00 73 01/09/21 15:59 37.6 C H 76 19 94/55 L 98 01/09/21 11:59 36.5 C 75 20 97/58 L 96 Laboratory Results 01/08/21 00:20 01/09/21 05:56 Lactate 1.6 Repeat blood cultures X 2 drawn today are pending BC from 01/08/21 with Group B Beta Strep Diagnostic Findings XR chest 2V PA/lateral CLINICAL HISTORY: ?pneumonia on prior cxr COMPARISON STUDY: January 08, 2021 FINDINGS: No pneumothorax. No pleural effusion. Small atelectasis is seen at the left base. Mild interval improvement of diffuse reticular nodular opacities throughout bilateral lungs. Cardiomediastinal silhouette is within upper limits of normal. Aorta is calcified. Mild pulmonary vascular congestion is seen. Bilateral gilles are prominent.. Osseous structures: unremarkable IMPRESSION: 1. Mild atelectasis at the left base. 2. Interval improvement of diffuse reticular nodular opacities in presence of pulmonary vascular congestion and slightly prominent cardiomediastinal silhouette might represent improvement of pulmonary edema. 3. Atherosclerosis. ACT 112: Negative or not required by law. The above report was generated using voice recognition software. It may contain grammatical, syntax or spelling errors. Electronically signed by: Myranda Gautam DO 01/09/2021 8:28 AM PG Care Time/CCT Total # of Minutes Spent Total Time Spent with Patient: Total time spent is greater than 50% in coordination of care (as documented) at patient's floor/unit and/or counseling patient: Coding Level of Care Code 40242 Subseq Hosp Care Lvl 2 Diagnoses Sepsis A41.9 Sepsis acute organ dysfunction status: without acute organ dysfunction Sepsis type: sepsis due to unspecified organism Acute hypotension I95.9 Benign localized prostatic hyperplasia with lower urinary tract symptoms (LUTS) N40.1 Primary hypogonadism in male E29.1 Depression with anxiety F41.8 Gastric bypass status for obesity Z98.84 Abnormal CXR R93.89 Obstructive sleep apnea G47.33 Diabetes mellitus, type 2 E11.9 GERD without esophagitis K21.9 Morbid obesity E66.01 DVT prophylaxis Z29.9 Time Spent (min) 30 (1) Sepsis Sepsis acute organ dysfunction status: without acute organ dysfunction Sepsis type: sepsis due to unspecified organism Qualified Code(s): A41.9 - Sepsis, unspecified organism
[2021-01-09] MEDS: ESCITALOPRAM OXALATE 20 MG TAB PO SCH (21:24)
[2021-01-09] MEDS: ESCITALOPRAM OXALATE 10 MG TAB PO SCH (21:24)
[2021-01-10] MEDS: TADALAFIL~ORDER AWAITING ACTION SCH ×3 (01:33→14:19)
[2021-01-10] MEDS: VANCOMYCIN HCL 1,750 MG in SODIUM CHLORIDE 0.9% 500 ML IV SCH (01:33)
[2021-01-10] MEDS: HEPARIN SOD 5,000 UNIT/0.5 ML VIAL SQ SCH ×3 (06:03→20:13)
[2021-01-10] MEDS: PIPERACILLIN/TAZOBACTAM 4.5 GM in DEXTROSE 5% 100 ML IV SCH (08:43)
[2021-01-10] MEDS: DOXYCYCLINE HYCLATE 100 MG in DEXTROSE 5% 100 ML IV SCH (08:43)
[2021-01-10] MEDS: GABAPENTIN 600 MG TAB PO SCH ×2 (08:44→20:12)
[2021-01-10] MEDS: FEXOFENADINE HCL 180 MG TAB PO SCH (08:45)
[2021-01-10] MEDS: busPIRone 5 MG TAB PO SCH ×2 (08:45→20:12)
[2021-01-10] MEDS: MULTIVITAMIN CHEWABLE TAB PO SCH (08:45)
[2021-01-10] MEDS: MICONAZOLE NITRATE POWDER 43 GM EXT SCH (08:46)
[2021-01-10] MEDS: PREGABALIN 150 MG CAP PO SCH ×2 (08:49→20:11)
[2021-01-10] MEDS: cefTRIAXone SODIUM 2,000 MG in DEXTROSE 5% 50 ML IV SCH (13:35)
--- NOTE | 2021-01-10 16:36 | CT Scan Report ---
CT OF THE CHEST WITHOUT IV CONTRAST CLINICAL HISTORY: Sepsis. COMPARISON STUDY: Chest CT September 12, 2018. Chest radiograph January 09, 2021. CT DOSE: 725.16 mGycm TECHNIQUE: Axial images of the chest were obtained without IV contrast. Images were reviewed in the axial, sagittal, and coronal planes. IV contrast was not administered for this examination. Automat ed exposure control was utilized for the study. A dose lowering technique was utilized adhering to t he principles of ALARA. FINDINGS: There are numerous small mediastinal and bilateral hilar lymph nodes. Mild cardiomegaly is noted. There is no pericardial effusion. There is no pneumothorax. There are trace bilateral pleural effusions. There is no consolidation to suggest pneumonia. There is mild interlobular septal thicken ing. Central airways are patent. No acute fracture or suspicious lesion is identified within visualiz ed portions of the bony thorax. Abdomen and pelvis will be reported separately. IMPRESSION: 1. Mild interstitial edema and trace bilateral pleural effusions. 2. No consolidation to suggest pneumonia. 3. Mild cardiomegaly. ACT 112: Negative or not required by law. Electronically signed by: Don Mercado M.D. 01/10/2021 4:34 PM
--- NOTE | 2021-01-10 16:49 | CT Scan Report ---
CT OF THE ABDOMEN AND PELVIS WITHOUT CONTRAST CLINICAL HISTORY: Sepsis. COMPARISON STUDY: CT of the abdomen and pelvis September 12, 2018. TECHNIQUE: Axial images of the abdomen and pelvis were obtained without IV contrast. Images were revi ewed in the axial, sagittal, and coronal planes. Automated exposure control was utilized for the monse dy. A dose lowering technique was utilized adhering to the principles of ALARA. FINDINGS: Evaluation is optimized given the lack of contrast and artifact from body wall contacting t he gantry. There are postoperative findings from Tejal-en-Y gastric bypass. There is no evidence for a bowel obstruction. No pneumatosis, free air or portal venous gas is present. There is mild mesenteri c infiltration, a nonspecific finding. Unenhanced images of liver, spleen, adrenal glands and pancrea s are unremarkable. Is no hydronephrosis. There are no urinary calculi. Note is made of multifocal sk in thickening with subcutaneous infiltration within the anterior abdominal wall. There is a 1.4 cm mckeon bcutaneous hyperdensity. This could reflect an injection site or a tiny hematoma. No biliary or pancr eatic ductal dilatation is noted. There are numerous small retroperitoneal lymph node. No pathologica lly enlarged lymph nodes are present. Multilevel degenerative changes within the lumbar spine are inc identally noted. The appendix is normal. IMPRESSION: 1. Technically compromised exam given lack of contrast and artifact from body wall contacting the gildardo try. 2. Status post Tejal-en-Y gastric bypass. No bowel obstruction. 3. Mild mesenteric infiltration, a nonspecific finding. If persistent pain, a contrast-enhanced CT of the abdomen and pelvis is recommended. ACT 112: Negative or not required by law. Electronically signed by: Don Mercado M.D. 01/10/2021 4:48 PM
[2021-01-10] MEDS ORDERED: Nursing to Pharmacy Communication SCH (17:30)
[2021-01-10] MEDS: ESCITALOPRAM OXALATE 10 MG TAB PO SCH (20:12)
[2021-01-10] MEDS: ESCITALOPRAM OXALATE 20 MG TAB PO SCH (20:12)
--- NOTE | 2021-01-10 20:42 | Hospitalist Progress Note ---
Date of Service January 10, 2021 Assessment & Plan (1) Sepsis: Plan: Septicemia with gram-positive cocci in chains. 4 out of 4 bottles were positive. Day #4 with doxycycline, Zosyn, vancomycin Repeat cultures obtained this morning and currently are pending Abnormal chest x-ray but does not look like pneumonia. Repeat chest x-ray today with interval improvement. Uncertain etiology/source Procalcitonin 1.41 Continue to monitor on telemetry Obtained CT chest/ abd/pelvis No source noted. neg echo (2) Acute hypotension: Plan: Secondary to sepsis This is now improved. Generally SBP has been above 100 throughout the day Continue treatment for underlying sepsis (3) Benign localized prostatic hyperplasia with lower urinary tract symptoms (LUTS): Plan: Not on an alpha-reyes at home Follow strict I's and O's (4) Primary hypogonadism in male: Plan: Continue testosterone replacement (5) Depression with anxiety: Plan: No lability to mood today Continue buspirone, escitalopram (6) Gastric bypass status for obesity: Plan: Bypass several years ago Patient has put on significant amounts of weight Anxious to get home to begin protein replacement strategy for further weight loss Continue to manage outpatient (7) Abnormal CXR: Plan: Infectious etiology No sputum collection Repeat chest x-ray today shows interval improvement in opacification (8) Obstructive sleep apnea: Plan: Patient was CPAP at home at 13 cm H2O Continue CPAP while inpatient (9) Diabetes mellitus, type 2: Plan: Hemoglobin A1c in August 2020 was 6.3% Diet controlled No insulin or oral meds at home Random glucose 114 (10) GERD without esophagitis: Plan: Controlled. Not on an H2 reyes or PPI at home No complaints of epigastric pain here. (11) Morbid obesity: Plan: Status post gastric bypass in the past BMI 38.9 kg/m Outpatient management (12) DVT prophylaxis: Plan: Heparin 7500 units every 8 hours Please refer to Dr. Escobedo's addendum for further recommendations and corrections Admission and Anticipated Discharge Date Admission Date: January 08, 2021 Subjective Patient reports no new symptoms. Review of Systems Review of Systems: All systems reviewed & are unremarkable except as noted in HPI & below Physical Exam Physical Exam: GENERAL : No acute distress. In bed resting. Easily awakens EYES: No icterus, gaze conjugate NOSE: No evidence of epistaxis MOUTH: No lesions or candidiasis. Mucosa moist NECK: Supple LUNGS: CTA B/L, no wheezes, rales or rhonchi HEART: Regular, rate controlled ABDOMEN: Soft, NT, ND, BS Present EXTREMITIES: No LE edema, pedal pulses intact and equal bilaterally NEURO: A&OX3 Results & Data Results & Data ([facility]) Vital Signs (Past 12 Hours) Vital Signs Temp Pulse Pulse Resp BP Pulse Ox 01/10/21 19:12 37.1 C 59 L 19 120/70 98 01/10/21 15:30 56 L 01/10/21 15:11 36.4 C L 58 L 21 128/72 97 01/10/21 11:54 36.8 C 56 L 22 115/66 97 PG Care Time/CCT Total # of Minutes Spent Total Time Spent with Patient: Total time spent is greater than 50% in coordination of care (as documented) at patient's floor/unit and/or counseling patient: Coding Level of Care Code 59641 Subseq Hosp Care Lvl 3 Diagnoses Sepsis A41.9 Sepsis acute organ dysfunction status: without acute organ dysfunction Sepsis type: sepsis due to unspecified organism Acute hypotension I95.9 Benign localized prostatic hyperplasia with lower urinary tract symptoms (LUTS) N40.1 Primary hypogonadism in male E29.1 Depression with anxiety F41.8 Gastric bypass status for obesity Z98.84 Abnormal CXR R93.89 Obstructive sleep apnea G47.33 Diabetes mellitus, type 2 E11.9 GERD without esophagitis K21.9 Morbid obesity E66.01 DVT prophylaxis Z29.9 Time Spent (min) 35 (1) Sepsis Sepsis acute organ dysfunction status: without acute organ dysfunction Sepsis type: sepsis due to unspecified organism Qualified Code(s): A41.9 - Sepsis, unspecified organism
[2021-01-10] MEDS ORDERED: TESTOSTERONE CYPIONATE IM 200 MG/ML VIAL IM ONE (21:00)
[2021-01-11] MEDS: TADALAFIL~ORDER AWAITING ACTION SCH ×4 (02:31→23:46)
[2021-01-11] MEDS: HEPARIN SOD 5,000 UNIT/0.5 ML VIAL SQ SCH ×3 (06:43→21:46)
[2021-01-11] MEDS: busPIRone 5 MG TAB PO SCH ×2 (08:28→21:47)
[2021-01-11] MEDS: MICONAZOLE NITRATE POWDER 43 GM EXT SCH (08:28)
[2021-01-11] MEDS: MULTIVITAMIN CHEWABLE TAB PO SCH (08:30)
[2021-01-11] MEDS: PREGABALIN 150 MG CAP PO SCH ×2 (08:34→21:46)
[2021-01-11] MEDS: GABAPENTIN 600 MG TAB PO SCH ×2 (08:35→21:46)
[2021-01-11] MEDS: FEXOFENADINE HCL 180 MG TAB PO SCH (08:35)
[2021-01-11] MEDS: cefTRIAXone SODIUM 2,000 MG in DEXTROSE 5% 50 ML IV SCH (13:08)
[2021-01-11 14:17] LABS: Basophils # (auto) 0.02 K/uL (0-0.2); Basophils % (auto) 0.4 %; Eosinophils # (auto) 0.14 K/uL (0-0.5); Eosinophils % (auto) 2.9 %; Hematocrit (blood only) 40.1 % (42-52); Hemoglobin 13.4 g/dL (14.0-18.0); Immature Granulocytes # (auto) 0.01 K/uL (0.00-0.02); Immature Granulocytes % (auto) 0.2 %; Lymphocytes # (auto) 2.27 K/uL (1.2-3.4); Lymphocytes % (auto) 46.2 %; Mean Corpuscular Hemoglobin 31.5 pg (25-34); Mean Corpuscular Hgb Conc 33.4 g/dL (32-36); Mean Corpuscular Volume 94.4 fL (80-100); Mean Platelet Volume 11.1 fL (7.4-10.4); Monocytes # (auto) 0.46 K/uL (0.11-0.59); Monocytes % (auto) 9.4 %; Neutrophils # (auto) 2.01 K/uL (1.4-6.5); Neutrophils % (auto) 40.9 %; Platelet Count 161 K/uL (130-400); RDW Coefficient of Variation 14.5 % (11.5-14.5); RDW Standard Deviation 49.9 fL (36.4-46.3); Red Blood Count 4.25 M/uL (4.7-6.1); White Blood Count 4.91 K/uL (4.8-10.8)
--- NOTE | 2021-01-11 14:42 | Hospitalist Progress Note ---
Date of Service January 11, 2021 Assessment & Plan (1) Sepsis: Plan: Septicemia with gram-positive cocci in chains. 4 out of 4 bottles were positive. Day #5 with doxycycline, Zosyn, vancomycin Repeat cultures are negatvive. Abnormal chest x-ray but does not look like pneumonia. Repeat chest x-ray today with interval improvement. Uncertain etiology/source Procalcitonin 1.41 Continue to monitor on telemetry Obtained CT chest/ abd/pelvis No source noted. neg echo No fever for 24 houra. (2) Acute hypotension: Plan: Secondary to sepsis This is now improved. Generally SBP has been above 100 throughout the day Continue treatment for underlying sepsis (3) Benign localized prostatic hyperplasia with lower urinary tract symptoms (LUTS): Plan: Not on an alpha-reyes at home Follow strict I's and O's (4) Primary hypogonadism in male: Plan: Continue testosterone replacement (5) Depression with anxiety: Plan: No lability to mood today Continue buspirone, escitalopram (6) Gastric bypass status for obesity: Plan: Bypass several years ago Patient has put on significant amounts of weight Anxious to get home to begin protein replacement strategy for further weight loss Continue to manage outpatient (7) Abnormal CXR: Plan: Infectious etiology No sputum collection Repeat chest x-ray today shows interval improvement in opacification (8) Obstructive sleep apnea: Plan: Patient was CPAP at home at 13 cm H2O Continue CPAP while inpatient (9) Diabetes mellitus, type 2: Plan: Hemoglobin A1c in August 2020 was 6.3% Diet controlled No insulin or oral meds at home Random glucose 114 (10) GERD without esophagitis: Plan: Controlled. Not on an H2 reyes or PPI at home No complaints of epigastric pain here. (11) Morbid obesity: Plan: Status post gastric bypass in the past BMI 38.9 kg/m Outpatient management (12) DVT prophylaxis: Plan: Heparin 7500 units every 8 hours Please refer to Dr. Escobedo's addendum for further recommendations and corrections Admission and Anticipated Discharge Date Admission Date: January 08, 2021 Subjective Patient reports no new symptoms. Review of Systems Review of Systems: All systems reviewed & are unremarkable except as noted in HPI & below Physical Exam Physical Exam: GENERAL : No acute distress. In bed resting. Easily awakens EYES: No icterus, gaze conjugate NOSE: No evidence of epistaxis MOUTH: No lesions or candidiasis. Mucosa moist NECK: Supple LUNGS: CTA B/L, no wheezes, rales or rhonchi HEART: Regular, rate controlled ABDOMEN: Soft, NT, ND, BS Present EXTREMITIES: No LE edema, pedal pulses intact and equal bilaterally NEURO: A&OX3 Results & Data Results & Data ([facility]) Vital Signs (Past 12 Hours) Vital Signs Temp Pulse Pulse Resp BP Pulse Ox 01/11/21 11:04 36.9 C 56 L 20 114/63 98 01/11/21 08:00 55 L 01/11/21 07:15 36.3 C L 60 21 124/76 98 01/11/21 04:00 36.8 C 61 20 127/69 97 01/11/21 03:08 77 21 95 PG Care Time/CCT Total # of Minutes Spent Total Time Spent with Patient: Total time spent is greater than 50% in coordination of care (as documented) at patient's floor/unit and/or counseling patient: Coding Level of Care Code 54370 Subseq Hosp Care Lvl 2 Diagnoses Sepsis A41.9 Sepsis acute organ dysfunction status: without acute organ dysfunction Sepsis type: sepsis due to unspecified organism Acute hypotension I95.9 Benign localized prostatic hyperplasia with lower urinary tract symptoms (LUTS) N40.1 Primary hypogonadism in male E29.1 Depression with anxiety F41.8 Gastric bypass status for obesity Z98.84 Abnormal CXR R93.89 Obstructive sleep apnea G47.33 Diabetes mellitus, type 2 E11.9 GERD without esophagitis K21.9 Morbid obesity E66.01 DVT prophylaxis Z29.9 Time Spent (min) 25 (1) Sepsis Sepsis acute organ dysfunction status: without acute organ dysfunction Sepsis type: sepsis due to unspecified organism Qualified Code(s): A41.9 - Sepsis, un specified organism
[2021-01-11 14:52] LABS: Albumin Globulin Ratio 0.7 (0.9-2); BUN Creatinine Ratio 12.3 (10-20); Bilirubin,Total 0.4 mg/dl (0.2-1); Calcium 8.7 mg/dl (8.5-10.1); Creatinine Clr Calc Pharmacy 147.4 ml/min; Est GFR (African American) 109.8 ml/min; Est GFR (Non-African American) 94.7 ml/min; Globulin 4.3 gm/dl (2.5-4.0); Total Protein 7.3 gm/dl (6.4-8.2)
[2021-01-11 15:03] LABS: Potassium 4.1 mmol/L (3.5-5.1)
[2021-01-11] MEDS ORDERED: SODIUM CHLORIDE 0.65% NA SOLN 45 ML (OCEAN) SCH (15:22)
[2021-01-11] MEDS ORDERED: SODIUM CHLORIDE 0.65% NA SOLN 45 ML (OCEAN) PRN (15:29)
[2021-01-11] MEDS: ESCITALOPRAM OXALATE 20 MG TAB PO SCH (21:47)
[2021-01-11] MEDS: ESCITALOPRAM OXALATE 10 MG TAB PO SCH (21:47)
[2021-01-11] MEDS: ADVANCED PROBIOTIC 1250 MG CAPSULE PO SCH (21:47)
[2021-01-12] MEDS: HEPARIN SOD 5,000 UNIT/0.5 ML VIAL SQ SCH ×3 (06:30→20:52)
[2021-01-12] MEDS: TADALAFIL~ORDER AWAITING ACTION SCH ×2 (07:50→13:10)
[2021-01-12] MEDS: busPIRone 5 MG TAB PO SCH ×2 (08:19→20:53)
[2021-01-12] MEDS: FEXOFENADINE HCL 180 MG TAB PO SCH (08:19)
[2021-01-12] MEDS: MICONAZOLE NITRATE POWDER 43 GM EXT SCH (08:20)
[2021-01-12] MEDS: ADVANCED PROBIOTIC 1250 MG CAPSULE PO SCH (08:20)
[2021-01-12] MEDS: GABAPENTIN 600 MG TAB PO SCH ×2 (08:20→20:54)
[2021-01-12] MEDS: MULTIVITAMIN CHEWABLE TAB PO SCH (08:20)
[2021-01-12] MEDS: PREGABALIN 150 MG CAP PO SCH ×2 (08:21→21:00)
[2021-01-12] MEDS: cefTRIAXone SODIUM 2,000 MG in DEXTROSE 5% 50 ML IV SCH (13:10)
--- NOTE | 2021-01-12 20:46 | Hospitalist Progress Note ---
Date of Service January 12, 2021 Assessment & Plan (1) Sepsis: Plan: Septicemia with gram-positive cocci in chains. 4 out of 4 bottles were positive. Day #5 on antibiotics: Initially on doxycycline, Zosyn, vancomycin Transitioned to ceftriaxone. End date: 12/21 Patient interested in going to [facility]. Repeat cultures are negative. Abnormal chest x-ray but does not look like pneumonia. Repeat chest x-ray today with interval improvement. Uncertain etiology/source: patient pops boils with needle. may be skin source. Procalcitonin 1.41 Continue to monitor on telemetry Obtained CT chest/ abd/pelvis No source noted. neg echo Patient needs to drive to [place] on 12/20 for [employer] convention. will discuss with case management on if patient can infuse abx on 12/21. And removeperipheral U/S line once he returns. will need peripheral US guided line at discharge. (2) Acute hypotension: Plan: Secondary to sepsis This is now improved. Generally SBP has been above 100 throughout the day Continue treatment for underlying sepsis (3) Benign localized prostatic hyperplasia with lower urinary tract symptoms (LUTS): Plan: Not on an alpha-reyes at home Follow strict I's and O's (4) Primary hypogonadism in male: Plan: Continue testosterone replacement (5) Depression with anxiety: Plan: No lability to mood today Continue buspirone, escitalopram (6) Gastric bypass status for obesity: Plan: Bypass several years ago Patient has put on significant amounts of weight Anxious to get home to begin protein replacement strategy for further weight loss Continue to manage outpatient (7) Abnormal CXR: Plan: Infectious etiology No sputum collection Repeat chest x-ray today shows interval improvement in opacification (8) Obstructive sleep apnea: Plan: Patient was CPAP at home at 13 cm H2O Continue CPAP while inpatient (9) Diabetes mellitus, type 2: Plan: Hemoglobin A1c in August 2020 was 6.3% Diet controlled No insulin or oral meds at home Random glucose 114 (10) GERD without esophagitis: Plan: Controlled. Not on an H2 eryes or PPI at home No complaints of epigastric pain here. (11) Morbid obesity: Plan: Status post gastric bypass in the past BMI 38.9 kg/m Outpatient management (12) DVT prophylaxis: Plan: Heparin 7500 units every 8 hours Please refer to Dr. Escobedo's addendum for further recommendations and corrections Admission and Anticipated Discharge Date Admission Date: January 08, 2021 Subjective Patient reports feeling well. No new complaints. Review of Systems Review of Systems: All systems reviewed & are unremarkable except as noted in HPI & below Physical Exam Physical Exam: GENERAL : No acute distress. In bed resting. Easily awakens EYES: No icterus, gaze conjugate NOSE: No evidence of epistaxis MOUTH: No lesions or candidiasis. Mucosa moist NECK: Supple LUNGS: CTA B/L, no wheezes, rales or rhonchi HEART: Regular, rate controlled ABDOMEN: Soft, NT, ND, BS Present EXTREMITIES: No LE edema, pedal pulses intact and equal bilaterally NEURO: A&OX3 Results & Data Results & Data ([facility]) Vital Signs (Past 12 Hours) Vital Signs Temp Pulse Pulse Resp BP Pulse Ox 01/12/21 19:08 37.3 C 60 20 131/74 98 01/12/21 17:05 83 01/12/21 16:32 36.6 C 72 20 118/61 98 01/12/21 12:55 37.0 C 66 18 120/69 95 PG Care Time/CCT Total # of Minutes Spent Total Time Spent with Patient: Total time spent is greater than 50% in coordination of care (as documented) at patient's floor/unit and/or counseling patient: Coding Level of Care Code 01227 Subseq Hosp Care Lvl 2 Diagnoses Sepsis A41.9 Sepsis acute organ dysfunction status: without acute organ dysfunction Sepsis type: sepsis due to unspecified organism Acute hypotension I95.9 Benign localized prostatic hyperplasia with lower urinary tract symptoms (LUTS) N40.1 Primary hypogonadism in male E29.1 Depression with anxiety F41.8 Gastric bypass status for obesity Z98.84 Abnormal CXR R93.89 Obstructive sleep apnea G47.33 Diabetes mellitus, type 2 E11.9 GERD without esophagitis K21.9 Morbid obesity E66.01 DVT prophylaxis Z29.9 Time Spent (min) 25 (1) Sepsis Sepsis acute organ dysfunction status: without acute organ dysfunction Sepsis type: sepsis due to unspecified organism Qualified Code(s): A41.9 - Sepsis, unspecified organism
[2021-01-12] MEDS: ESCITALOPRAM OXALATE 20 MG TAB PO SCH (20:54)
[2021-01-12] MEDS: ESCITALOPRAM OXALATE 10 MG TAB PO SCH (20:54)
[2021-01-13] MEDS: TADALAFIL~ORDER AWAITING ACTION SCH ×3 (02:47→17:11)
[2021-01-13] MEDS: HEPARIN SOD 5,000 UNIT/0.5 ML VIAL SQ SCH ×3 (06:05→20:01)
[2021-01-13] MEDS: ADVANCED PROBIOTIC 1250 MG CAPSULE PO SCH (08:38)
[2021-01-13] MEDS: MULTIVITAMIN CHEWABLE TAB PO SCH (08:38)
[2021-01-13] MEDS: PREGABALIN 150 MG CAP PO SCH ×2 (08:38→20:08)
[2021-01-13] MEDS: GABAPENTIN 600 MG TAB PO SCH ×2 (08:39→20:01)
[2021-01-13] MEDS: MICONAZOLE NITRATE POWDER 43 GM EXT SCH (08:39)
[2021-01-13] MEDS: busPIRone 5 MG TAB PO SCH ×2 (08:39→20:01)
[2021-01-13] MEDS: FEXOFENADINE HCL 180 MG TAB PO SCH (08:39)
[2021-01-13] MEDS: cefTRIAXone SODIUM 2,000 MG in DEXTROSE 5% 50 ML IV SCH (12:20)
--- NOTE | 2021-01-13 18:44 | Hospitalist Progress Note ---
Date of Service January 13, 2021 Assessment & Plan (1) Bacteremia: Plan: Group B beta strep in 4/4 bottles on 01/08. Cleared by the next day. - Echocardiogram on 01/09 showed no vegetations. - CT chest/abd/pelvis on 01/10/2021 showed no source of infection - He notes that he sometimes pops boils with a needle, though no overt cellulitis this admission. - Plan for ceftriaxone 2 g IV daily x 14 days. (2) Sepsis: Plan: Septicemia with gram-positive cocci in chains. - Resolved by discharge. (3) Acute hypotension: Plan: Secondary to sepsis. This is now improved. (4) Benign localized prostatic hyperplasia with lower urinary tract symptoms (LUTS): Plan: No symptoms today. Not on an alpha-reyes at home. (5) Primary hypogonadism in male: Plan: - Continue testosterone replacement (6) Depression with anxiety: Plan: No lability to mood today. - Continue buspirone, escitalopram (7) Gastric bypass status for obesity: Plan: Bypass several years ago. Patient has put on significant amounts of weight. Anxious to get home to begin protein replacement strategy for further weight loss. - Continue to manage outpatient (8) Obstructive sleep apnea: Plan: Patient was CPAP at home at 13 cm H2O. - Continue CPAP while inpatient (9) Diabetes mellitus, type 2: Plan: Hemoglobin A1c in August 2020 was 6.3%. - Diet controlled - No insulin or oral meds at home (10) GERD without esophagitis: Plan: Controlled. No complaints of epigastric pain here. - Not on an H2 reyes or PPI at home (11) Morbid obesity: Plan: Status post gastric bypass in the past. BMI 38.9 kg/m. - Outpatient management (12) DVT prophylaxis: Plan: Heparin 7,500 units SQ Q8h Admission and Anticipated Discharge Date Admission Date: January 08, 2021 Subjective Doing well today. Reports no fevers/chills, chest pain, shortness of breath, abdominal pain, nausea, or vomiting. Physical Exam Constitutional: WD/WN, vitals as above Eyes: EOM intact bilaterally; no conjunctival abnormality ENMT: external ear and nose normal, oropharynx normal Neck: trachea midline, no thyromegaly normal visual inspection Respiratory: normal respiratory effort, lungs clear to auscultation no respiratory distress Cardiovascular: RRR, no murmur, no edema Gastrointestinal (Abdomen): Inspection/Auscultation: abdomen normal to inspection; abdomen not distended Musculoskeletal: no cyanosis or clubbing, extremities motor strength 5/5 Skin: no rashes, warm and dry Neurologic: moves all extremities and awake Psychiatric: Orientation: alert, oriented to person and cooperative Results & Data Results & Data ([facility]) Vital Signs (Past 12 Hours) Vital Signs Temp Pulse Pulse Resp BP Pulse Ox 01/13/21 16:37 62 01/13/21 15:47 36.4 C L 51 L 20 130/78 99 01/13/21 11:57 36.4 C L 57 L 20 127/69 97 01/13/21 08:12 36.8 C 63 19 132/70 97 01/13/21 08:00 59 L PG Care Time/CCT Total # of Minutes Spent Total Time Spent with Patient: Total time spent is greater than 50% in coordination of care (as documented) at patient's floor/unit and/or counseling patient: Coding Level of Care Code 64964 Subseq Hosp Care Lvl 2 Diagnoses Sepsis A41.9 Sepsis acute organ dysfunction status: without acute organ dysfunction Sepsis type: sepsis due to unspecified organism Acute hypotension I95.9 Benign localized prostatic hyperplasia with lower urinary tract symptoms (LUTS) N40.1 Primary hypogonadism in male E29.1 Depression with anxiety F41.8 Gastric bypass status for obesity Z98.84 Obstructive sleep apnea G47.33 Diabetes mellitus, type 2 E11.9 GERD without esophagitis K21.9 Morbid obesity E66.01 DVT prophylaxis Z29.9 Bacteremia R78.81 (1) Sepsis Sepsis acute organ dysfunction status: without acute organ dysfunction Sepsis type: sepsis due to unspecified organism Qualified Code(s): A41.9 - Sepsis, unspecified organism
[2021-01-13] MEDS: ESCITALOPRAM OXALATE 10 MG TAB PO SCH (20:01)
[2021-01-13] MEDS: ESCITALOPRAM OXALATE 20 MG TAB PO SCH (20:01)
[2021-01-14] MEDS: TADALAFIL~ORDER AWAITING ACTION SCH ×2 (01:29→08:15)
[2021-01-14] MEDS: HEPARIN SOD 5,000 UNIT/0.5 ML VIAL SQ SCH (05:33)
[2021-01-14] MEDS: PREGABALIN 150 MG CAP PO SCH (08:24)
[2021-01-14] MEDS: busPIRone 5 MG TAB PO SCH (08:25)
[2021-01-14 08:26] LABS: Hematocrit (blood only) 37.1 % (42-52); Hemoglobin 12.6 g/dL (14.0-18.0); Mean Corpuscular Hemoglobin 31.9 pg (25-34); Mean Corpuscular Volume 93.9 fL (80-100); Mean Platelet Volume 10.9 fL (7.4-10.4); Platelet Count 191 K/uL (130-400); RDW Coefficient of Variation 14.3 % (11.5-14.5); RDW Standard Deviation 48.9 fL (36.4-46.3); Red Blood Count 3.95 M/uL (4.7-6.1); White Blood Count 5.45 K/uL (4.8-10.8)
[2021-01-14] MEDS: FEXOFENADINE HCL 180 MG TAB PO SCH (08:26)
[2021-01-14] MEDS: GABAPENTIN 600 MG TAB PO SCH (08:26)
[2021-01-14] MEDS: MULTIVITAMIN CHEWABLE TAB PO SCH (08:27)
[2021-01-14] MEDS: MICONAZOLE NITRATE POWDER 43 GM EXT SCH (08:27)
[2021-01-14] MEDS: ADVANCED PROBIOTIC 1250 MG CAPSULE PO SCH (08:27)
[2021-01-14 09:00] LABS: BUN Creatinine Ratio 14.6 (10-20); Calcium 8.2 mg/dl (8.5-10.1); Est GFR (African American) 119.1 ml/min; Est GFR (Non-African American) 102.7 ml/min; Potassium 3.8 mmol/L (3.5-5.1)
[2021-01-14] MEDS: cefTRIAXone SODIUM 2,000 MG in DEXTROSE 5% 50 ML IV SCH (10:42)
--- NOTE | 2021-01-14 19:10 | Discharge Summary ---
Date of Service January 14, 2021 Admission HPI Per Admitting Provider The patient is a 65-year-old male with a past medical history including biceps tendinitis on the left, left rotator cuff tear, primary hypogonadism in the male, status post gastric bypass, BPH with LUTS, diabetes mellitus type 2, depression with anxiety, dyslipidemia, GERD without esophagitis, morbid obesity, right knee G DJD, left bundle branch block, and meralgia paresthetica. Patient presents with acute onset of symptoms as noted above, and he reports and feeling of reports that he is unable to quit shaking since this began. He has had a chronically productive cough, and has a known issue with his prostate and follows with Dr. Manrique from urology. Principal Diagnosis Group B Strep bacteremia Discharge Exam Constitutional WD/WN, vitals as above Eyes EOM intact bilaterally; no conjunctival abnormality ENMT external ear and nose normal, oropharynx normal Neck trachea midline, no thyromegaly normal visual inspection Respiratory normal respiratory effort, lungs clear to auscultation no respiratory distress Cardiovascular RRR, no murmur, no edema Gastrointestinal (Abdomen) Inspection/Auscultation: abdomen normal to inspection; abdomen not distended Musculoskeletal no cyanosis or clubbing, extremities motor strength 5/5 Skin no rashes, warm and dry Neurologic moves all extremities and awake Psychiatric Orientation: alert, oriented to person and cooperative Discharge Data Allergies Allergy/AdvReac Type Severity Reaction Status Date / Time propoxyphene Allergy Intermediate Shakiness Verified 01/08/21 00:26 metformin AdvReac Mild Diarrhea Verified 01/08/21 00:26 NSAIDS (Non-Steroidal AdvReac Unknown Only PO Verified 01/08/21 00:26 Anti-Inflamma meds - Contraindicated, had Bariatric Surgery Consultations 01/08/21 02:40 ED Decision to Admit Stat 01/10/21 08:02 Consult Infectious Diseases Routine Ordered Studies 01/10/21 12:39 CT abd pelvis wo con Routine CT chest diagnostic wo con Routine Hospital Course (1) Bacteremia: Group B beta strep in 4/4 bottles on 01/08. Cleared by the next day. - Echocardiogram on 01/09 showed no vegetations. - CT chest/abd/pelvis on 01/10/2021 showed no source of infection. - He notes that he sometimes pops boils with a needle, though no overt cellulitis this admission. - Plan for ceftriaxone 2 g IV daily x 14 days. Final date will be 01/22/2021. Set up with [facility] for tomorrow. (2) Sepsis: Septicemia with gram-positive cocci in chains. - Resolved by discharge. (3) Acute hypotension: Secondary to sepsis. This is now improved. (4) Benign localized prostatic hyperplasia with lower urinary tract symptoms (LUTS): No symptoms today. Not on an alpha-reyes at home. (5) Primary hypogonadism in male: - Continue testosterone replacement (6) Depression with anxiety: No lability to mood today. - Continue buspirone, escitalopram (7) Gastric bypass status for obesity: Bypass several years ago. Patient has put on significant amounts of weight. Anxious to get home to begin protein replacement strategy for further weight loss. - Continue to manage outpatient (8) Obstructive sleep apnea: Patient was CPAP at home at 13 cm H2O. - Continue CPAP while inpatient (9) Diabetes mellitus, type 2: Hemoglobin A1c in August 2020 was 6.3%. - Diet controlled - No insulin or oral meds at home (10) GERD without esophagitis: Controlled. No complaints of epigastric pain here. - Not on an H2 reyes or PPI at home (11) Morbid obesity: Status post gastric bypass in the past. BMI 38.9 kg/m. - Outpatient management (12) DVT prophylaxis: Heparin 7,500 units SQ Q8h Total Time Total Time Spent Total Time Spent (In Minutes): 35 Discharge Plan Discharge Items Patient Disposition: Home - Self-Care Reason For Visit: SEPSIS,HYPOTENSION Discharge Diagnosis: Group B Strep bacteremia Activity: Resume your previous activity Non-emergency contact: Primary Care Provider Call non-emergency contact if: your symptoms worsen and your temperature is above 101 Follow-up/Referrals: Una Galindo CRNP [Primary Care Provider] - 01/24/21 7:50 am Diet: Regular Addtl Attending Provider Instructions: Mr. Nix, You were admitted to the hospital with low blood pressure and signs of infection. We started you on antibiotics which have improved how you are doing. However, some of the bacteria got into your bloodstream, and this unfortunately requires IV antibiotics to help eradicate. You will need to go to the [facility] entrance of the hospital to get to the [facility] which administers IV antibiotics. Please go tomorrow at 12:30pm for your scheduled visit, then determine with them your daily time after that. Please finish the entire duration of the antibiotics as stopping early could lead to a recurrence of the bacteria in the bloodstream. Your scheduled last day will be tracked by the [facility]. It should be January 22 as this is 2 weeks past the date of your negative blood culture. Pending Studies at Discharge: No Stand-Alone Forms: My [facility], Smoking Cessation Medications and DC Order Prescriptions: New ceftriaxone 2 gram recon soln 2 g IV DAILY Qty: 1 RF: 0 Continued testosterone cypionate 200 mg/mL kit 150 mg IM .weekly Qty: 10 RF: 1 (DME) BD Eclipse Luer-Talia 3 mL 25 x 5/8" syringe See Rx Instructions .ROUTE .MEDSUPPLY Qty: 50 RF: 0 (DME) safety needles [BD SafetyGlide Needle] 18 gauge x 1 1/2" needle See Rx Instructions .ROUTE .MEDSUPPLY Qty: 100 RF: 0 pregabalin 300 mg capsule 300 mg PO BID 30 Days Qty: 60 RF: 3 tadalafil 20 mg tablet 20 mg PO DAILY Qty: 30 RF: 5 buspirone 10 mg Tablet 20 mg PO BID RF: 0 lorazepam [Ativan] 1 mg Tablet 1 mg PO DAILY PRN (Reason: Anxiety) RF: 0 escitalopram oxalate 10 mg tablet 10 mg PO HS RF: 0 escitalopram oxalate 20 mg tablet 20 mg PO HS RF: 0 gabapentin 600 mg tablet 600 mg PO BID RF: 0 sodium chloride [Saline Nasal Mist] 0.65 % Aerosol,[place] 1 spray INTRANASAL BID PRN (Reason: Nasal Congestion) RF: 0 ondansetron HCl 4 mg tablet 4 mg PO Q8H PRN (Reason: Nausea) RF: 0 meclizine 25 mg tablet 25 mg PO TID PRN (Reason: dizziness) Qty: 30 RF: 0 fexofenadine 180 mg Tablet 180 mg PO DAILY RF: 0 cyanocobalamin (vitamin B-12) 1,000 mcg/mL Solution 1,000 mcg IM MONTHLY RF: 0 [place] with Iron 18 mg iron Tablet,Chewable 1 tab PO DAILY RF: 0 Discharge Orders: Discharge Order (Routine); Ordered 01/14/21 Ordered By: Nigel Romano Admission Data Admit Date/Time: 01/08/21 03:39 Attending Provider: Nigel Romano Admit Provider: Sage Woo Primary Care Provider: Una Galindo Other Providers: Kalyan Prieto ; Shanda Pradhan ; Fermin Saucedo I. ; Tevin Manjarrez II ; Gissel Vitale ; Fermin Yusfu ; Nigel Romano ; Steve,Fax ; [place] Other Interventions: Discharge Summary Assessment (RN) Last Done: 01/14/21 12:51 Coding Level of Care Code D/C DAY MANAGEMENT >30 MINS Diagnoses Bacteremia R78.81 Sepsis A41.9 Sepsis acute organ dysfunction status: without acute organ dysfunction Sepsis type: sepsis due to unspecified organism Acute hypotension I95.9 Benign localized prostatic hyperplasia with lower urinary tract symptoms (LUTS) N40.1 Primary hypogonadism in male E29.1 Depression with anxiety F41.8 Gastric bypass status for obesity Z98.84 Obstructive sleep apnea G47.33 Diabetes mellitus, type 2 E11.9 GERD without esophagitis K21.9 Morbid obesity E66.01 DVT prophylaxis Z29.9
== END 2021-01-14 15:11 | disposition home or self-care (01) | DRG 872 ==
LOC: ED 23:06 → 2S 01-08 03:39 → SUATTDRO 01-08 03:39 → 2S 01-08 05:01